=== PATIENT | female | born 1925 | race Caucasian/White ===

== ENCOUNTER 2017-04-27 08:30 | Inpatient (IN) | payer BC, OTHER ==
[~2017-04-27] VITALS: Ht 152.4 cm; Wt 60.9 kg
[~2017-04-27 08:30] MED LIST: BROM0.07 OPL; CALC500C70 PO; CHOL100040 PO; CRS/10 PO; CYAN10004 PO; DOXY1TAB6 PO; GATI0.5S OPR; LISI20TA3 PO; METO25TA56 PO; MULT-506 PO; PRED1SUS3 OPL; XRL15 PO
[2017-04-27] MEDS ORDERED: SODIUM CHLORIDE 0.9% 1000ML 250 ML IV STA (08:49)
[2017-04-27] MEDS ORDERED: SENN-65 PO (08:54)
[2017-04-27] MEDS ORDERED: IPRASOL4 INH (08:54)
[2017-04-27] MEDS ORDERED: AMLO-110 PO (08:54)
[2017-04-27] MEDS ORDERED: BENZ200C59 PO (08:54)
[2017-04-27] MEDS ORDERED: DOCU100C31 PO (08:54)
[2017-04-27] MEDS ORDERED: MOML PO (08:54)
[2017-04-27] MEDS ORDERED: LEVO50TA PO (08:54)
[2017-04-27] MEDS ORDERED: ONDA8TAB6 PO (08:54)
[2017-04-27] MEDS ORDERED: TRAM-10 PO (08:54)
[2017-04-27] MEDS ORDERED: SODIENE PR (08:54)
[2017-04-27] MEDS ORDERED: ACET-1256 PO (08:54)
[2017-04-27] MEDS ORDERED: LEVO1TAB35 PO (08:54)
[2017-04-27] MEDS ORDERED: NYST80OI TOP (08:54)
[2017-04-27] MEDS ORDERED: GUAI1TAB75 PO (08:54)
[2017-04-27] MEDS ORDERED: BISA1TAB15 PO (08:54)
[2017-04-27] MEDS ORDERED: POLY1POW2 PO (08:54)
[2017-04-27] MEDS ORDERED: POLY1DRO19 OP (08:54)
[2017-04-27] MEDS ORDERED: ALBINS/ INH (08:55)
--- NOTE | 2017-04-27 08:55 | EMERGENCY ROOM VISIT NOTE ---
History Report prepared by Mickey: Dominique Tran Under the Supervision of: Dr. Miguel Stark M.D. First contact with patient: 08:37 Stated Complaint: RESPIRATORY History of Present Illness The patient is an 89 year old female who presents to the Emergency Room with complaints of persistent respiratory problems that began this past weekend. Per nursing staff, the patient has been at [facility] for rehabilitation after having a stroke that occurred in January that affected her left side. Per nursing staff, the patient had developed a dry cough, that turned into a wet cough. The patient reports shortness of breath today. Nursing staff notes that the patient has been on Levaquin since this past weekend. The patient denies any difficulty eating or pain or swelling in her lower extremities. She denies any vomiting or chest pain. Per nursing staff the patient had a fever recently. Nursing staff reports a history of atrial fibrillation, hypertension , and a GI bleed. Source of History: patient, transfer records, nursing staff Onset: this past weekend Position: other (global) Quality: other (respiratory problems) Timing: other (persistent) Associated Symptoms: + fevers, + cough, + chest pain, No SOB, No vomiting Review of Systems See HPI for pertinent positives & negatives. A total of 10 systems reviewed and were otherwise negative. Past Medical & Surgical Medical Problems: (1) Chronic atrial fibrillation (2) Elbow fracture, left (3) Femoral fracture (4) GI bleed (5) GI bleed (6) History of right MCA stroke (7) HLD (hyperlipidemia) (8) HTN (hypertension) (9) Osteoporosis (10) Stroke Surgical Problems: (1) History of bowel resection (2) History of total hip replacement Old medical records were reviewed. Nurse's notes were reviewed and I agree with. Family History Noncontributory secondary to the patient's age. Social History Smoking Status: Never Smoker Marital Status: single Occupation Status: retired Current/Historical Medications Scheduled Amlodipine (Norvasc), 5 MG PO QAM Calcium/Vitamin D (Os-Octaviano 500 Plus D), 1 TAB PO DAILY Cholecalciferol (Vitamin D-1000), 1 TAB PO DAILY Docusate Sodium (Docusate Sodium), 1 CAP PO BID Guaifenesin La (Guaifenesin Er), 600 MG PO TIDM Ipratropium-Albuterol (Duoneb), 3 ML INH Q4H Levofloxacin (Levaquin), 750 MG PO DAILY Levothyroxine Sodium (Synthroid), 50 MCG PO DAILY Metoprolol Tartrate (Lopressor) (Lopressor), 25 MG PO BID Nystatin (Topical) (Nystatin), 1 APPLN TOP BID Rosuvastatin Calcium (Crestor), 10 MG PO QPM Scheduled PRN Acetaminophen (Tylenol), 500 MG PO Q4 PRN for Pain Albuterol Sulf (Proventil 0.083% 2.5MG/3ML), 2.5 MG INH Q4 PRN for Shortness of Breath Benzonatate (Tessalon Perles), 200 MG PO TID PRN for Cough Bisacodyl (Bisacodyl), 10 SUPP PO UD PRN for Constipation Magnesium Hydroxide (Milk Of Magnesia), 30 ML PO DAILY PRN for Constipation Ondansetron Hcl (Zofran), 8 MG PO Q8 PRN for Nausea or Vomiting Polyethylene Glycol 3350 (Bulk (Polyethylene Glycol 3350), 17 GM PO DAILY PRN for Constipation Polyethylene Glycol-Propylene (Lubricant Eye Drops), 1 DROP OP BID PRN for DRYNESS Senna/Docusate Sod (Senokot S), 1 TAB PO DAILY PRN for Constipation Sodium Phosphate/Biphosphate (Fleet Enema), 1 EA VT DAILY PRN for Constipation Tramadol (Ultram), 50 MG PO Q4H PRN for Pain Allergies Coded Allergies: Statins (Verified Adverse Reaction, Unknown, MUSCLE ACHES, 04/27/17) Physical Exam Vital Signs Date Time Temp Pulse Resp B/P (MAP) Pulse Ox O2 Delivery O2 Flow Rate FiO2 04/27/17 11:05 125 26 95 04/27/17 11:01 89/60 04/27/17 10:35 129 28 96 04/27/17 10:30 140 28 116/70 94 04/27/17 10:00 132 27 95 04/27/17 09:30 135 25 95 04/27/17 09:00 133 27 96 04/27/17 08:55 95 Room Air 2.0 04/27/17 08:53 95 Room Air 2.0 04/27/17 08:46 36.8 132 32 103/76 94 Room Air 04/27/17 08:39 135 04/27/17 08:35 103/76 Physical Exam General: Chronically ill-appearing older female in no acute distress, who has a frequent cough. HEENT: Normal cephalic atraumatic. Pupils are equal round and reactive to light. Extraocular movements are intact. Oropharynx is pink with moist mucous membranes. No swelling of the mouth lips or tongue. Neck: Supple with a midline trachea. No meningeal signs or stiffness, no JVD or bruits. No Stridor. Chest: Rhonchus breath sounds. No increased work of breathing. Heart: Irregularly irregular, moderately tachycardic Abdomen: Soft nontender, nondistended without rebound guarding or rigidity. Extremities: No cyanosis clubbing or edema. No calf tenderness or assymetry Spine/Back. Non tender to palpation. No CVA tenderness Skin: Good turgor without rashes. Neurologic exam: Cranial nerves two through 12 are intact. Baseline weakness on the left side compared to the right, more so than in the arm than leg. Medical Decision & Procedures ER Provider Diagnostic Interpretation: Radiology results as stated below per my review and radiologist interpretation: CHEST ONE VIEW PORTABLE CLINICAL HISTORY: CHEST PAIN dyspnea COMPARISON STUDY: No previous studies for comparison. FINDINGS: Moderate cardiomegaly. Infiltrate left base combined with a small left effusion. Minimal atelectasis right base. Moderate prominence pulmonary vasculature. Severe degenerative change left shoulder. IMPRESSION: Pulmonary vascular congestion with a probable superimposed infiltrate/effusion left base. The above report was generated using voice recognition software. It may contain grammatical, syntax or spelling errors. Electronically signed by: Augustus Logan M.D. 04/27/2017 9:25 AM Dictated Date/Time: 04/27/2017 9:24 AM Laboratory Results 04/27/17 08:52 Red Blood Count 3.73, Mean Corpuscular Volume 82.6, Mean Corpuscular Hemoglobin 26.3, Mean Corpuscular Hemoglobin Concent 31.8, Mean Platelet Volume 9.5, Neutrophils (%) (Auto) 82.8, Lymphocytes (%) (Auto) 7.1, Monocytes (%) (Auto) 8.6, Eosinophils (%) (Auto) 0.9, Basophils (%) (Auto) 0.1, Neutrophils # (Auto) 10.54, Lymphocytes # (Auto) 0.90, Monocytes # (Auto) 1.10, Eosinophils # (Auto) 0.12, Basophils # (Auto) 0.01 04/27/17 08:49 Test 04/27/17 08:49 04/27/17 08:50 04/27/17 08:52 04/27/17 09:05 Anion Gap 7.0 mmol/L (3-11) Est Creatinine Clear Calc Drug Dose 41.3 ml/min Estimated GFR () 80.6 Estimated GFR (Non- 69.5 BUN/Creatinine Ratio 27.1 (10-20) Calcium Level 9.2 mg/dl (8.5-10.1) Total Bilirubin 0.3 mg/dl (0.2-1) Direct Bilirubin 0.1 mg/dl (0-0.2) Aspartate Amino Transf (AST/SGOT) 14 U/L (15-37) Alanine Aminotransferase (ALT/SGPT) 16 U/L (12-78) Alkaline Phosphatase 102 U/L (45-117) Total Creatine Kinase 32 U/L (26-192) Total Protein 6.7 gm/dl (6.4-8.2) Albumin 2.5 gm/dl (3.4-5.0) Lipase 117 U/L (73-393) Prothrombin Time 13.6 SECONDS (9.0-12.0) Prothromb Time International Ratio 1.3 (0.9-1.1) Procalcitonin 0.15 ng/ml (0-0.5) White Blood Count 12.74 K/uL (4.8-10.8) Red Blood Count 3.73 M/uL (4.2-5.4) Hemoglobin 9.8 g/dL (12.0-16.0) Hematocrit 30.8 % (37-47) Mean Corpuscular Volume 82.6 fL (80-100) Mean Corpuscular Hemoglobin 26.3 pg (25-34) Mean Corpuscular Hemoglobin Concent 31.8 g/dl (32-36) Platelet Count 305 K/uL (130-400) Mean Platelet Volume 9.5 fL (7.4-10.4) Neutrophils (%) (Auto) 82.8 % Lymphocytes (%) (Auto) 7.1 % Monocytes (%) (Auto) 8.6 % Eosinophils (%) (Auto) 0.9 % Basophils (%) (Auto) 0.1 % Neutrophils # (Auto) 10.54 K/uL (1.4-6.5) Lymphocytes # (Auto) 0.90 K/uL (1.2-3.4) Monocytes # (Auto) 1.10 K/uL (0.11-0.59) Eosinophils # (Auto) 0.12 K/uL (0-0.5) Basophils # (Auto) 0.01 K/uL (0-0.2) RDW Standard Deviation 50.7 fL (36.4-46.3) RDW Coefficient of Variation 16.8 % (11.5-14.5) Immature Granulocyte % (Auto) 0.5 % Immature Granulocyte # (Auto) 0.07 K/uL (0.00-0.02) Bedside Lactic Acid Venous 1.09 mmol/L (0.90-1.70) Test 04/27/17 10:30 Influenza Type A Antigen Neg for Influ A (NEG) Influenza Type B Antigen Neg for Influ B (NEG) Laboratory studies as stated above per my review. Medications Administered Medications (Trade) Dose Ordered Sig/Marielos Route Start Time Stop Time Status Last Admin Dose Admin Sodium Chloride 250 ml @ 999 mls/hr Q16M STAT IV 04/27/17 08:49 04/27/17 09:04 DC 04/27/17 08:49 999 MLS/HR Piperacillin Sod/ Tazobactam Sod (Zosyn Iv) 4.5 gm NOW STAT IV 04/27/17 10:10 04/27/17 10:11 DC 04/27/17 10:32 4.5 GM ECG Indication: SOB/dyspnea Rate (beats per minute): 134 Rhythm: atrial fibrillation (with RVR) Findings: nonspecific-ST abn, other (with RVR) ED Course 0840: Past medical records reviewed. The patient was evaluated in room B6, and a complete history and physical examination were performed. 0849: Ordered Sodium Chloride 250 ml @ 999 mls/hr IV. 1010: Ordered Zosyn IV 4.5 gm IV. 1011: I reevaluated the patient and she is resting comfortably. I discussed the exam findings with her and I discussed the treatment plan. She verbalized complete understanding and agreement. She will be evaluated for further treatment. 1015: I discussed the patients case with Leigh Abreu. He is going to evaluate the patient for further treatment. Medical Decision Differentials include, but are not limited to; pneumonia, aspiration, CHF, cardiac disease, electrolyte or metabolic abnormality. This patient comes in sent in from [facility]. She's had had a stroke and there is concern for aspiration. She's had rhonchorous breath sounds had a deep hacking cough. She was also noted to be rapid A. fib. I think this is more compensatory. She was given IV fluids gently, given the concern for possible CHF as well. EKG shows moderately rapid A. fib without ischemic changes. White count is elevated. Lactic acid is not elevated. She's had no significant electrode or metabolic abnormalities. Chest x-ray shows infiltrate in the base. I think she most likely did aspirate. She was given Zosyn 4.5 g IV hydration think she needs to be admitted for further treatment and evaluation blood cultures of obtained. I did consult the [facility] hospitalist. Medication Reconcilliation Current Medication List: was personally reviewed by me Blood Pressure Screening Patient's blood pressure: Normal blood pressure Blood pressure disposition: Did not require urgent referral Consults Time Called: 1011 Consulting Physician: Leigh Abreu Returned Call: 1015 I discussed the patients case with Leigh Abreu. He is going to evaluate the patient for further treatment. Impression Primary Impression: Aspiration pneumonia Additional Impressions: Rapid atrial fibrillation Congestive heart failure Scribe Attestation The scribe's documentation has been prepared under my direction and personally reviewed by me in its entirety. I confirm that the note above accurately reflects all work, treatment, procedures, and medical decision making performed by me. Departure Information Dispostion Being Evaluated By Hospitalist Referrals Irene Graf PA-C (PCP) Problem Qualifiers
--- NOTE | 2017-04-27 09:27 | DIAGNOSTIC IMAGING REPORT ---
CHEST ONE VIEW PORTABLE CLINICAL HISTORY: CHEST PAIN dyspnea COMPARISON STUDY: No previous studies for comparison. FINDINGS: Moderate cardiomegaly. Infiltrate left base combined with a small left effusion. Minimal atelectasis right base. Moderate prominence pulmonary vasculature. Severe degenerative change left shoulder. IMPRESSION: Pulmonary vascular congestion with a probable superimposed infiltrate/effusion left base. The above report was generated using voice recognition software. It may contain grammatical, syntax or spelling errors. Electronically signed by: Augustus Logan M.D. 04/27/2017 9:25 AM Dictated Date/Time: 04/27/2017 9:24 AM
[2017-04-27 09:45] LABS: BUN/CREATININE RATIO 27.1 (10-20); CALCIUM 9.2 mg/dl (8.5-10.1); CREATININE 0.76 mg/dl (0.60-1.20); POTASSIUM 4.2 mmol/L (3.5-5.1)
[2017-04-27 09:47] LABS: BASO % 0.1 %; BASO ABS # 0.01 K/uL (0-0.2); COMPLETE YES; EOS % 0.9 %; HEMATOCRIT 30.8 % (37-47); IG% 0.5 %; LYMPH % 7.1 %; MEAN CELL VOLUME 82.6 fL (80-100); MEAN CORPUSCULAR HEMOGLOBIN 26.3 pg (25-34); MEAN CORPUSCULAR HGB CONC 31.8 g/dl (32-36); MEAN PLATELET VOLUME 9.5 fL (7.4-10.4); MONO % 8.6 %; NEUT % 82.8 %; PLATELET COUNT 305 K/uL (130-400); RED BLOOD COUNT 3.73 M/uL (4.2-5.4); WHITE BLOOD COUNT 12.74 K/uL (4.8-10.8)
[2017-04-27 09:51] LABS: CKMB/CK RATIO 2.2 (0-3.0)
[2017-04-27] MEDS ORDERED: PIPERACILLIN/TAZOBACTAM 4.5 GM/100ML D5W IV STA (10:10)
[2017-04-27] MEDS ORDERED: ONDANSETRON INJ 2 MG/ML 2 ML VIAL IV PRN (11:45)
[2017-04-27] MEDS ORDERED: CONSULT PHARMACY STA (11:51)
[2017-04-27 11:57] LABS: INR 1.3 (0.9-1.1); PROTHROMBIN TIME (PATIENT) 13.6 SECONDS (9.0-12.0)
[2017-04-27] MEDS ORDERED: FUROSEMIDE INJ 40 MG in SYRINGE 0 ML IV ONE (12:15)
[2017-04-27] MEDS ORDERED: DIGOXIN IV 125 MCG in SYRINGE 9.5 ML IV STA (12:28)
[2017-04-27] MEDS ORDERED: PIPERACILL/TAZOBAC CONSULT ACTIVE PRN (12:30)
[2017-04-27] MEDS ORDERED: VANCOMYCIN CONSULT ACTIVE PRN (12:30)
[2017-04-27] MEDS ORDERED: POLYETHYLENE (MIRALAX) 17 GM PACK PO PRN (12:45)
[2017-04-27] MEDS ORDERED: DOCUSATE SODIUM/SENNA 50/8.6MG TAB PO PRN (12:45)
[2017-04-27] MEDS ORDERED: DIGOXIN IV 125 MCG in SYRINGE 9.5 ML IV ONE (13:15)
[2017-04-27 14:07] VITALS: BP 106/67; TEMP 36.8; Ht 152.4 cm; Wt 60.9 kg
[2017-04-27] MEDS ORDERED: PANTOprazole SOD 40 MG TAB PO ONE (14:15)
[2017-04-27] MEDS ORDERED: INFLUENZA ADMINISTRATION CHARGE ONE (14:45)
[2017-04-27] MEDS ORDERED: INFLUENZA VACCINE HIGH DOSE 65+ 0.5 ML SYR IM. ONE (14:45)
[2017-04-27 14:47] LABS: URINE APPEARANCE TURBID (CLEAR); URINE BILIRUBIN NEG (NEG); URINE COLOR YELLOW; URINE EPITHELIAL CELL AUTO >30 /lpf (0-5); URINE NITRITE NEG (NEG); URINE SPECIFIC GRAVITY 1.031 (1.000-1.030); UROBILINOGEN NEG (NEG)
[2017-04-27 14:53] LABS: MANUAL MICROSCOPIC REQUIRED? NO; REVIEW REQ? YES
[2017-04-27] MEDS: IPRATROPIUM BROMIDE NEB SOLN 0.02% 2.5 ML VIAL INH SCH ×2 (15:16→20:47)
[2017-04-27] MEDS: LEVALBUTEROL 1.25MG/3ML NEB INH SCH ×2 (15:17→20:47)
[2017-04-27 15:21] VITALS: PULSE 114; O2SAT 96
[2017-04-27] MEDS: SODIUM CHLORIDE 0.9% 1000ML 1,000 ML IV SCH (15:24)
[2017-04-27] MEDS: PIPERACILL/TAZOBAC IV 3.375 GM in DEXTROSE 5% 100ML IV SCH (15:28)
[2017-04-27] MEDS ORDERED: METOPROLOL TARTRATE 25 MG TAB PO ONE (15:30)
--- NOTE | 2017-04-27 16:15 | History and Physical ---
History & Physical Date & Time of Service: Apr 27, 2017 ~ 11:15 Chief Complaint: Elevated Heart Rate, Worsening Respiratory Status Primary Care Physician: Currently at [facility] Has followed with Leigh Le in the Past History of Present Illness 89 year old female who is sent from [facility] for tachycardia and worsening respiratory status. Some history is obtained from outpatient records. Patient has history of atrial fibrillation and had been anticoagulated on Xarelto however developed a gastric ulcer with bleeding while taking Doxycycline. Xarelto was held and patient unfortunately suffered a right MCA stroke. She was treated at [facility]. Patient was evaluated by GI, cardiology, and neurology who decided to resume anticoagulation with Eliquis. Patient was then transferred to a SNF. She continued to improve and was then transferred to [facility]. I discussed the case with SILVERIO Cervantes at [facility]. She reports that since the patient has arrived there she has had a moist cough that has been progressively getting worse. She also is now requiring 2L of oxygen. Patient was treated for a UTI with Bactrim a couple of weeks ago. Due to her worsening cough, she was started on Levaquin on 04/24 for a suspected pneumonia. Blood pressures were also running low so her Lisinopril was discontinued recently. Since yesterday, patient's heart rate has been persistently in the 130s so she was sent to the ED for further evaluation. Patient reports a persistent cough. She reports it is moist but non productive. She has some mild exertional shortness of breath. Staff at [facility] report that they have noticed her to be coughing with her pills and meals at times. Patient denies chest pain and palpitations. No lightheadedness, dizziness, diaphoresis, or syncopal events. She reports some nausea a couple of days ago with one episode of vomiting. She attributes this to the Levaquin. Her appetite has been poor. No abdominal pain or diarrhea. She denies urinary symptoms. In the ED, patient' s HR continues to be in the 130s and with borderline BPs with systolic in the 90s-low 100s. WBC 12K, POC lactate is normal. CXR shows a left base infiltrate/ effusion. She was given 250ml IVF and Zosyn. Past Medical/Surgical History Medical Problems: (1) Chronic atrial fibrillation Status: Chronic (2) Elbow fracture, left Permanent Comment: s/p repair Status: Chronic (3) Femoral fracture Permanent Comment: s/p rodding Status: Chronic (4) GI bleed Status: Resolved (5) GI bleed Status: Chronic (6) History of right MCA stroke Status: Chronic (7) HLD (hyperlipidemia) Status: Chronic (8) HTN (hypertension) Status: Chronic (9) Osteoporosis Status: Chronic (10) Stroke Status: Resolved Surgical Problems: (1) History of bowel resection Status: Chronic (2) History of total hip replacement Status: Chronic Family History non contributory due to patient's age Social History Smoking Status: Never Smoker Alcohol Use: none Immunizations History of Influenza Vaccine: Yes Influenza Vaccine Date: Apr 28, 2016 History of Tetanus Vaccine?: Yes Tetanus Immunization Date: Dec 06, 2005 History of Pneumococcal: Yes Pneumococcal Date: October 23, 2014 Allergies Coded Allergies: Statins (Verified Adverse Reaction, Unknown, MUSCLE ACHES, 04/27/17) Home Medications Scheduled Amlodipine (Norvasc), 5 MG PO QAM Calcium/Vitamin D (Os-Octaviano 500 Plus D), 1 TAB PO DAILY Cholecalciferol (Vitamin D-1000), 1 TAB PO DAILY Docusate Sodium (Docusate Sodium), 1 CAP PO BID Guaifenesin La (Guaifenesin Er), 600 MG PO TIDM Ipratropium-Albuterol (Duoneb), 3 ML INH Q4H Levofloxacin (Levaquin), 750 MG PO DAILY Levothyroxine Sodium (Synthroid), 50 MCG PO DAILY Metoprolol Tartrate (Lopressor) (Lopressor), 25 MG PO BID Nystatin (Topical) (Nystatin), 1 APPLN TOP BID Rosuvastatin Calcium (Crestor), 10 MG PO QPM Scheduled PRN Acetaminophen (Tylenol), 500 MG PO Q4 PRN for Pain Albuterol Sulf (Proventil 0.083% 2.5MG/3ML), 2.5 MG INH Q4 PRN for Shortness of Breath Benzonatate (Tessalon Perles), 200 MG PO TID PRN for Cough Bisacodyl (Bisacodyl), 10 SUPP PO UD PRN for Constipation Magnesium Hydroxide (Milk Of Magnesia), 30 ML PO DAILY PRN for Constipation Ondansetron Hcl (Zofran), 8 MG PO Q8 PRN for Nausea or Vomiting Polyethylene Glycol 3350 (Bulk (Polyethylene Glycol 3350), 17 GM PO DAILY PRN for Constipation Polyethylene Glycol-Propylene (Lubricant Eye Drops), 1 DROP OP BID PRN for DRYNESS Senna/Docusate Sod (Senokot S), 1 TAB PO DAILY PRN for Constipation Sodium Phosphate/Biphosphate (Fleet Enema), 1 EA AL DAILY PRN for Constipation Tramadol (Ultram), 50 MG PO Q4H PRN for Pain Review of Systems ROS per HPI, all other systems reviewed and negative Physical Exam Vital Signs Date Time Temp Pulse Resp B/P (MAP) Pulse Ox O2 Delivery O2 Flow Rate FiO2 04/27/17 13:15 128 04/27/17 13:04 121 30 117/67 97 Nasal Cannula 3.0 04/27/17 12:59 127 04/27/17 12:05 128 25 89/55 92 04/27/17 12:04 88/49 04/27/17 12:01 88/54 04/27/17 11:35 135 24 109/57 90 04/27/17 11:30 95/57 04/27/17 11:30 129 04/27/17 11:05 125 26 95 04/27/17 11:01 89/60 04/27/17 10:35 129 28 96 04/27/17 10:30 140 28 116/70 94 04/27/17 10:00 132 27 95 04/27/17 09:30 135 25 95 04/27/17 09:00 133 27 96 04/27/17 08:55 95 Room Air 2.0 04/27/17 08:53 95 Room Air 2.0 04/27/17 08:46 36.8 132 32 103/76 94 Room Air 04/27/17 08:39 135 04/27/17 08:35 103/76 General Appearance: WD/WN, no apparent distress, + pertinent finding (ill appearing) Head: normocephalic, atraumatic Eyes: normal inspection, EOMI, sclerae normal ENT: hearing grossly normal, + pertinent finding (mucous membranes moist) Neck: supple, no JVD, trachea midline Respiratory/Chest: no respiratory distress, + rhonchi (coarse, throughout all lung vaz) Cardiovascular: no edema, normal peripheral pulses, + tachycardia, + irregularly irregular Abdomen/GI: normal bowel sounds, non tender, soft, no organomegaly Extremities/Musculoskelatal: normal inspection, no calf tenderness Neurologic/Psych: alert, normal mood/affect, oriented x 3, + pertinent finding (chronic left sided weakness, unchanged; no acute gross focal deficits noted) Skin: normal color, warm/dry Diagnostics Laboratory Results Results Past 24 Hours Test 04/27/17 08:49 04/27/17 08:50 04/27/17 08:52 04/27/17 09:05 Range/Units Sodium Level 136 136-145 mmol/L Potassium Level 4.2 3.5-5.1 mmol/L Chloride Level 102 98-107 mmol/L Carbon Dioxide Level 27 21-32 mmol/L Anion Gap 7.0 3-11 mmol/L Blood Urea Nitrogen 21 7-18 mg/dl Creatinine 0.76 0.60-1.20 mg/dl Est Creatinine Clear Calc Drug Dose 41.3 ml/min Estimated GFR () 80.6 Estimated GFR (Non- 69.5 BUN/Creatinine Ratio 27.1 10-20 Random Glucose 101 70-99 mg/dl Calcium Level 9.2 8.5-10.1 mg/dl Total Bilirubin 0.3 0.2-1 mg/dl Direct Bilirubin 0.1 0-0.2 mg/dl Aspartate Amino Transf (AST/SGOT) 14 15-37 U/L Alanine Aminotransferase (ALT/SGPT) 16 12-78 U/L Alkaline Phosphatase 102 45-117 U/L Total Creatine Kinase 32 26-192 U/L Creatine Kinase MB 0.7 0.5-3.6 ng/ml Creatine Kinase MB Ratio 0-3.0 Total Protein 6.7 6.4-8.2 gm/dl Albumin 2.5 3.4-5.0 gm/dl Lipase 117 73-393 U/L Prothrombin Time 13.6 9.0-12.0 SECONDS Prothromb Time International Ratio 1.3 0.9-1.1 White Blood Count 12.74 4.8-10.8 K/uL Red Blood Count 3.73 4.2-5.4 M/uL Hemoglobin 9.8 12.0-16.0 g/dL Hematocrit 30.8 37-47 % Mean Corpuscular Volume 82.6 80-100 fL Mean Corpuscular Hemoglobin 26.3 25-34 pg Mean Corpuscular Hemoglobin Concent 31.8 32-36 g/dl Platelet Count 305 130-400 K/uL Mean Platelet Volume 9.5 7.4-10.4 fL Neutrophils (%) (Auto) 82.8 % Lymphocytes (%) (Auto) 7.1 % Monocytes (%) (Auto) 8.6 % Eosinophils (%) (Auto) 0.9 % Basophils (%) (Auto) 0.1 % Neutrophils # (Auto) 10.54 1.4-6.5 K/uL Lymphocytes # (Auto) 0.90 1.2-3.4 K/uL Monocytes # (Auto) 1.10 0.11-0.59 K/uL Eosinophils # (Auto) 0.12 0-0.5 K/uL Basophils # (Auto) 0.01 0-0.2 K/uL RDW Standard Deviation 50.7 36.4-46.3 fL RDW Coefficient of Variation 16.8 11.5-14.5 % Immature Granulocyte % (Auto) 0.5 % Immature Granulocyte # (Auto) 0.07 0.00-0.02 K/uL Bedside Lactic Acid Venous 1.09 0.90-1.70 mmol/L Test 04/27/17 10:30 04/27/17 12:03 04/27/17 12:10 04/27/17 12:23 Range/Units Influenza Type A Antigen Neg for Influ A NEG Influenza Type B Antigen Neg for Influ B NEG Lactic Acid Level 1.8 0.4-2.0 mmol/L Creatine Kinase MB Ratio 0-3.0 Microbiology Results 04/27/17 Blood Culture, Received Pending 04/27/17 Blood Culture, Received Pending Diagnostic Radiology CXR IMPRESSION: Pulmonary vascular congestion with a probable superimposed infiltrate/effusion left base. Impression Assessment and Plan ACUTE HYPOXIC RESPIRATORY FAILURE PNEUMONIA, POSSIBLE ASPIRATION SEPSIS - admit to tele - patient presenting from [facility] for worsening respiratory status and persistent tachycardia; in the ED, patient is in atrial fibrillation with RVR and CXR shows an infiltrate in the left base; currently requiring 2L of oxygen - tachycardic, WBC 12K; lactic acid normal, blood pressures borderline at times but stable - patient does sound rhoncherous on exam however given tachycardia and borderline BPs, will try some gentle IVFs to help with HR and BP - per staff at [facility], patient has been having coughing with pills and meals at times - s/p Zosyn in the ED, will continue with; check MRSA nasal swab and add Vanco if positive - blood and sputum cultures - nebs, flutter valve to help mobilize secretions - speech eval ATRIAL FIBRILLATION WITH RVR - rates uncontrolled likely due to sepsis - noted recent decrease of metoprolol at [facility] due to hypotension - case discussed with Dr. Amanda - will try digoxin and IVF - if BP allows, will resume beta chele - patient has history of chronic a. fib; was anticoagulated on Xarelto but developed a bleeding gastric ulcer in the setting of doxycycline use. Xarelto was held and patient suffered a right MCA stroke. While at [facility] , it was decided by cardiology, neurology, and GI that patient would be resumed on Eliquis. It does not appear that patient is receiving this medication at [facility]. I spoke with SILVERIO Lobo at [facility] who reported to me that she is unsure why patient is not receiving it. There have been no reported additional bleeding episodes. - given patient's high risk for CVA; will resume Eliquis at 2.5mg BID ( recommended dose at discharge from [facility]) and monitor hgb and for signs of bleeding closely HTN - BPs currently borderline - holding PO metoprolol and amlodipine for now HX RIGHT MCA CVA - resuming Eliquis as above HX GASTRIC ULCER - as above - noted that patient is due for repeat EGD for follow up of ulcer; likely can be done as an outpatient DVT PROPHYLAXIS - Eliquis as above CODE STATUS - Patient is a DNR as per my discussion with her and her daughter who is at the bedside. DISPO - In my clinical judgment this beneficiary meets acute admission criteria, established by [facility], that includes being hospitalized through two midnights. - PT/OT, case management - expect d/c back to [facility] once medically stable ADDENDUM: Saw/examined the patient in room 286 +sonorous, rhonchi, congestion throughout history tells me she has been having a productive cough [id number] sent from [facility] +hypoxia, +tachycardia, +leukocytosis given IVFs in the ED A. fib with RVR - given Digoxin due to hypotension On Eliquis for anticoagulation - monitor H/H - hx. of gastric ulcer VTE Prophylaxis VTE Risk Assessment Done? Y/N: Yes Risk Level: Moderate
--- NOTE | 2017-04-27 16:17 | ECHOCARDIOGRAM REPORT ---
*NOTICE TO RECEIVING [employer] This information is strictly Confidential and protected under [place] law. [place] law prohibits you from making any further disclosure of this information unless further disclosure is expressly permitted by the written consent of the person to whom it pertains or is authorized by law. A general authorization for the release of medical or other information is not sufficient for this purpose. Hospital accepts no responsibility if the information is made available to any other person, INCLUDING THE PATIENT. Interpretation Summary * Name: CORDELIA MAYS Study Date: 04/27/2017 02:25 PM BP: 106/67 mmHg * Patient Location: [facility]\S\N286\S\1 HR: 107 * : 1925 (M/d/yyyy) Gender: Female Height: 60 in * Age: 89 yrs Ethnicity: MO Weight: 136 lb * Ordering Physician: Maria Isabel Lyle * Referring Physician: UNKNOWN * Performed By: Glen Zimmerman RCS * * Reason For Study: A-FIB * BSA: 1.6 m2 * -- Conclusions -- * Aortic valve sclerosis moderate, without significant aortic valvular stenosis. * The left ventricular cavity is small. * There is moderate concentric left ventricular hypertrophy. * Proximal septal thickening is noted. * No regional wall motion abnormalities noted. * Ejection Fraction = >70 %. * The left atrium is severely dilated. * The right atrium is moderately dilated. * There is trace mitral regurgitation. * There is moderate to severe tricuspid regurgitation. * Right ventricular systolic pressure is elevated at 30-40mmHg. Procedure Details * A complete two-dimensional transthoracic echocardiogram was performed (2D, M-mode, Doppler and color flow Doppler). Left Ventricle * The left ventricular cavity is small. * There is moderate concentric left ventricular hypertrophy. * Proximal septal thickening is noted. * Left ventricular systolic function is normal. * Ejection Fraction = >70 %. * No regional wall motion abnormalities noted. Right Ventricle * The right ventricle is normal in size and function. Atria * The left atrium is severely dilated. * The right atrium is moderately dilated. * No ASD detected; PFO is not assessed. Mitral Valve * The mitral valve leaflets appear thickened, but open well. * There is no mitral valve stenosis. * There is trace mitral regurgitation. Tricuspid Valve * The tricuspid valve anatomy is normal. * There is no tricuspid stenosis. * There is moderate to severe tricuspid regurgitation. * Right ventricular systolic pressure is elevated at 30-40mmHg. Aortic Valve * The aortic valve is trileaflet. * Aortic valve sclerosis moderate, without significant aortic valvular stenosis. * No hemodynamically significant valvular aortic stenosis. * No aortic regurgitation is present. Pulmonic Valve * The pulmonic valve is not well visualized. Great Vessels * The aortic root is normal size. Pericardium/Pleural * There is no pericardial effusion. MMode 2D Measurements and Calculations IVSd 0.99 cm IVSs 1.1 cm LVIDd 3.0 cm LVIDs 1.7 cm LVPWd 0.87 cm LVPWs 1.0 cm IVS/LVPW 1.1 FS 42.3 % EDV(Teich) 34.4 ml ESV(Teich) 8.6 ml EF(Teich) 74.9 % EDV(cubed) 26.4 ml ESV(cubed) 5.1 ml EF(cubed) 80.8 % % IVS thick 7.3 % % LVPW thick 18.7 % LV mass(C)d 72.6 grams LV mass(C)dI 45.8 grams/m\S\2 LV mass(C)s 42.3 grams LV mass(C)sI 26.7 grams/m\S\2 SV(Teich) 25.8 ml SI(Teich) 16.3 ml/m\S\2 SV(cubed) 21.3 ml SI(cubed) 13.5 ml/m\S\2 Ao root diam 3.4 cm Ao root area 9.0 cm\S\2 ACS 1.6 cm LA dimension 5.2 cm asc Aorta Diam 3.1 cm LA/Ao 1.5 Doppler Measurements and Calculations MV E max jhony 138.6 cm/sec MV P1/2t max jhony 148.6 cm/sec MV P1/2t 61.8 msec MVA(P1/2t) 3.6 cm\S\2 MV dec slope 703.7 cm/sec\S\2 MV dec time 0.18 sec Ao V2 max 153.8 cm/sec Ao max PG 9.5 mmHg Ao max PG (full) 3.2 mmHg AI max jhony 259.3 cm/sec AI max PG 26.9 mmHg AI dec slope 425.4 cm/sec\S\2 AI P1/2t 178.5 msec LV V1 max PG 6.3 mmHg LV V1 max 125.1 cm/sec PA V2 max 104.5 cm/sec PA max PG 4.4 mmHg PI max jhony 214.5 cm/sec PI max PG 18.4 mmHg PI dec slope 247.4 cm/sec\S\2 PI P1/2t 253.9 msec TR max jhony 282.3 cm/sec
--- NOTE | 2017-04-27 16:31 | CARDIOLOGY CONSULTATION ---
DATE OF CONSULTATION: 04/27/2017 DATE OF CONSULTATION: 04/27/2017 REFERRING: Maria Isabel yLle. PRIMARY CARE PHYSICIAN: Dr Maciel PRIMARY RAW PRODUCTS DIRECTOR: Dr. Isaac Howard. HISTORY OF PRESENT ILLNESS: The patient is a complex 89-year-old female with information gained by review of records and discussion with the patient and family. Her history is notable for chronic atrial fibrillation of greater than 1 year's duration, hypothyroidism, stage III renal insufficiency, history of upper GI bleed on 01/30/2017 which resulted in interruption of chronic anticoagulation for atrial fibrillation. Per history and review of records, patient was rehospitalized with acute right hemispheric stroke consistent with embolic disease with associated left hemiparesis. The patient was subsequently discharged from [facility] and has been recently cared for at [facility] to expedite rehabilitation per records and report. The patient presents now noting approximately 1 week's worsening cough, feels she has upper respiratory infection exposure, was treated as possible pneumonia at rehab facility with oral Levaquin. Today, however, symptoms became more pronounced with worsening cough, shortness of breath and hypoxia as well as elevated ventricular response rates on chronic atrial fibrillation. She was transferred to the Emergency Room where initial blood pressures were notable for hypotension, systolic blood pressures in the 80s and 90s and heart rates as high as 135. The patient's main complaints were ongoing rhonchorous cough, low-grade fever. She noted no chest pain and noted no syncope, no melena, hematochezia that she is aware of, but described episode of gastric ulcer bleeding in January as previously noted. Appetite has been only fair. She has noted difficulty taking medications recently with trials attempt and taking medications in applesauce unsuccessful. She has been getting "most of her medications well taken with pudding per description". Blood pressure medications were not been notably reduced due to hypotension and outs in the [facility] facility with lisinopril being held and metoprolol dosing reduced. ALLERGIES: LUNESTA AND SIMVASTATIN. MEDICATIONS: Per review of records at time of transfer to [facility] were albuterol nebulizer, amlodipine 5 mg per day, Tessalon Perles, calcium with vitamin D, docusate 100 mg b.i.d., DuoNeb, levofloxacin 750 mg per day, Synthroid 50 mcg per day, metoprolol tartrate 25 mg per day with usual dose 50 mg twice per day, nystatin, Zofran, rosuvastatin 10 mg per day, Senokot, tramadol p.r.n. pain. Medications recently included above. In addition, the patient had been taking lisinopril 20 mg twice per day and as described metoprolol tartrate 50 mg twice per day as well as rivaroxaban 10 mg per day. PAST SURGICAL HISTORY: Notable for femoral fracture status post repair January 2015, total hip replacement in 2007, EGD done on 01/29/2016 with nonbleeding flat gastric ulcer treated with spot clipping. FAMILY HISTORY: Not notable for cardiac disease per patient though records reflect myocardial infarction in father at age 72. SOCIAL HISTORY: The patient is a nonsmoker, nondrinker. PHYSICAL EXAMINATION: GENERAL: The patient is a thin, age appropriate female, currently denying any acute complaints other than cough. Blood pressure is 100/60. Heart rate is 120. HEAD, EYES, EARS, NOSE, AND THROAT: Normocephalic, atraumatic. NECK: Thin. There is no jugular venous distension with patient examined at 20 degrees. Skin turgor is poor. LUNGS: Reveal coarse rhonchorous sounds, left greater than right. CARDIOVASCULAR: Irregular, irregular with a grade 1/6 systolic murmur at the apex. PMI is forceful. ABDOMEN: Soft. There is no hepatojugular reflux. EXTREMITIES: Without cyanosis or clubbing. There is no peripheral edema in the lower extremities. There are intact distal pulses. NEUROLOGIC: The patient has left lower extremity weakness and mild dysarthria. LABORATORY STUDIES: White cell count is 12.7, hemoglobin is 9.8, 82% neutrophils. Sodium is 136, potassium is 4.2, chloride is 102, bicarbonate 27, BUN is 21, creatinine 0.76, glucose is 101. AST is 14, ALT 16. CK-MB fractions and troponin are normal. BNP is normal. Albumin level is 2.5. Chest x-ray reveals increased interstitial markings as well as infiltrate left base. EKG reveals atrial fibrillation with rapid ventricular response, rate 134, nonspecific ST segment changes, no Q-waves. Blood culture and urine cultures are pending. Urine culture done during hospital stay recently demonstrated E. coli as well. IMPRESSION: An 89-year-old female who presents with febrile illness, elevated white cell count, coarse rhonchorous cough. X-ray demonstrated increasing congestion as well as infiltrate. Exam does not suggest congestive heart failure or volume overload with neck veins flat, poor skin turgor. The patient's chronic atrial fibrillation has an elevated ventricular response rate, likely in response to patient's acute illness and recent reduction in beta chele dosing. The patient received 0.25 mg of IV digoxin in the Emergency Room. We will reinstitute beta chele as blood pressure allows. Would continue hydration. We will review echocardiogram preliminary view in the room at bedside reveals normal to hyperdynamic LV function, marked biatrial enlargement. No wall motion abnormalities. MTDD
[2017-04-27] MEDS: GUAIFENESIN 600 MG TABCR PO SCH (17:18)
[2017-04-27] MEDS: METOPROLOL TARTRATE 25 MG TAB PO SCH ×2 (18:00→21:48)
[2017-04-27 19:37] VITALS: BP 99/63; PULSE 83
[2017-04-27] MEDS: NYSTATIN OINT 15 GM TUBE EXT SCH (20:43)
[2017-04-27] MEDS: DOCUSATE SODIUM 100 MG CAP PO SCH (20:43)
[2017-04-27] MEDS: APIXABAN 2.5 MG TAB PO SCH (20:44)
[2017-04-27] MEDS: ROSUVASTATIN CALCIUM 10 MG TAB PO SCH (20:44)
[2017-04-27 20:47] VITALS: PULSE 92; O2SAT 94
[2017-04-27] MEDS ORDERED: NURSING VERBAL MED ORDER ONE (21:15)
[2017-04-27 21:25] VITALS: PULSE 85; TEMP 37.1; O2SAT 95
[2017-04-27] MEDS ORDERED: CALCIUM CARBONATE 500 MG CHEWABLE PO PRN (21:30)
[2017-04-27 21:47] VITALS: BP 117/68; PULSE 73
[2017-04-27] MEDS: ACETAMINOPHEN 325 MG TAB PO PRN (21:51)
[2017-04-28] VITALS (13 sets, daily range): BP systolic 92–141; BP diastolic 60–71; PULSE 82–118; TEMP 36.5–37.1; O2SAT 94–98
[2017-04-28] MEDS: SODIUM CHLORIDE 0.9% 1000ML 1,000 ML IV SCH ×3 (00:14→20:11)
[2017-04-28] MEDS: PIPERACILL/TAZOBAC IV 3.375 GM in DEXTROSE 5% 100ML IV SCH ×3 (00:14→15:42)
[2017-04-28] MEDS: LEVALBUTEROL 1.25MG/3ML NEB INH SCH ×4 (01:57→20:24)
[2017-04-28] MEDS: IPRATROPIUM BROMIDE NEB SOLN 0.02% 2.5 ML VIAL INH SCH ×4 (01:57→20:24)
[2017-04-28] MEDS: LEVOTHYROXINE 50 MCG TAB PO SCH (06:20)
[2017-04-28] MEDS: METOPROLOL TARTRATE 25 MG TAB PO SCH ×4 (07:44→21:03)
[2017-04-28] MEDS: DOCUSATE SODIUM 100 MG CAP PO SCH ×2 (07:44→21:01)
[2017-04-28] MEDS: NYSTATIN OINT 15 GM TUBE EXT SCH ×2 (07:44→21:01)
[2017-04-28] MEDS: GUAIFENESIN 600 MG TABCR PO SCH ×3 (07:44→17:03)
[2017-04-28] MEDS: PANTOprazole SOD 40 MG TAB PO SCH (07:45)
[2017-04-28] MEDS: APIXABAN 2.5 MG TAB PO SCH ×2 (07:45→21:02)
[2017-04-28] MEDS: CHOLECALCIFEROL 1000 INTER.UNIT TAB PO SCH (07:45)
[2017-04-28] MEDS: CALCIUM 600MG + VIT D 400 IU TAB PO SCH (07:45)
--- NOTE | 2017-04-28 10:25 | PROGRESS NOTE ---
DATE: 04/28/2017 The patient was seen and examined. Chart, medications and telemetry were reviewed. SUBJECTIVE: The patient still has severe cough and poor p.o. intake though was able to take medications this morning and last evening. She notes no chest pain or discomfort. She has only mild amount of sputum production. OBJECTIVE: VITAL SIGNS: Heart rate is 112, blood pressure is 111/67 and O2 saturations are 94% on 2 liters nasal cannula. NECK: Thin. There is no distinct jugular venous distention. LUNGS: Reveal coarse rhonchorous sounds throughout lung vaz, left greater than the right, exacerbated by cough. CARDIOVASCULAR: Irregularly irregular. ABDOMEN: Soft and nontender. EXTREMITIES: Without cyanosis or clubbing. There is no peripheral edema. LABORATORY STUDIES: Pending. DATA: EKG this morning reveals atrial fibrillation with elevated ventricular response rate. No acute ST segment changes. IMPRESSION: An 89-year-old female, with complex history as previously outlined, admitted with acute respiratory decline and severe cough. Chest x-ray and exam are consistent with pneumonia, elevated atrial fibrillation response rates. The patient is being hydrated on antibiotic therapies. Anticoagulation has been resumed with Apixaban. PLAN: Continue IV hydration throughout today. She does have by examination on echocardiogram hyperdynamic LV function with brittle diastolic dysfunction by echo. We will need to follow fluid status closely. Current exam does not suggest heart failure. Once again, we will add digoxin to aid in rate control. Continue oral metoprolol with ultimate goals of further titration upward as blood pressure allows.
[2017-04-28] MEDS ORDERED: DIGOXIN 0.25 MG TAB PO ONE (10:30)
[2017-04-28 10:36] LABS: HEMATOCRIT 30.5 % (37-47); MEAN CELL VOLUME 82.9 fL (80-100); MEAN CORPUSCULAR HEMOGLOBIN 25.8 pg (25-34); MEAN CORPUSCULAR HGB CONC 31.1 g/dl (32-36); PLATELET COUNT 283 K/uL (130-400); RED BLOOD COUNT 3.68 M/uL (4.2-5.4); WHITE BLOOD COUNT 9.27 K/uL (4.8-10.8)
[2017-04-28 11:05] LABS: BUN/CREATININE RATIO 25.2 (10-20); CALCIUM 8.1 mg/dl (8.5-10.1); CREATININE 0.52 mg/dl (0.60-1.20); POTASSIUM 3.8 mmol/L (3.5-5.1)
--- NOTE | 2017-04-28 13:08 | DIAGNOSTIC IMAGING REPORT ---
VIDEO SWALLOW HISTORY: Pneumonia. r/o aspiration TECHNIQUE: Video fluoroscopic evaluation of swallowing was performed in the AP and lateral projections by the speech pathology staff. The patient is fed nectar-thick and thin liquid barium, a barium coated wafer, and barium pudding. FLUOROSCOPY TIME: 2.3 minutes. A cine loop submitted. COMPARISON STUDY: None. FINDINGS: There is normal hyoid excursion and epiglottic deflection. There are a few episodes of trace aspiration with the thin liquid barium. No additional episodes of aspiration identified. There is penetration without aspiration with the nectar thick liquid barium. IMPRESSION: 1. A few episodes of trace aspiration with the thin liquid barium. 2. Please see the speech pathologist report for detailed findings and recommendations. Electronically signed by: Zbigniew Valle M.D. 04/28/2017 1:07 PM Dictated Date/Time: 04/28/2017 1:05 PM
--- NOTE | 2017-04-28 14:50 | Progress Note ---
Medicine Progress Note Date & Time of Visit: Apr 28, 2017 at 14:50 . Subjective No fever. Persistent cough. No dyspnea at rest. Tongue sore. No chest pain. No nausea or vomiting. Nursing reports multiple loose stools and some hemorrhoidal bleeding. Has Ramirez cath. Daughter visiting. . Objective Last 8 Hrs Date Time Temp Pulse Resp B/P (MAP) Pulse Ox O2 Delivery O2 Flow Rate FiO2 04/28/17 14:27 36.5 92 18 114/69 (84) 98 2.0 04/28/17 14:24 90 18 95 Nasal Cannula 2.0 04/28/17 13:35 101 120/71 (87) 96 Nasal Cannula 2.0 04/28/17 11:22 36.9 91 18 103/61 (75) 97 Nasal Cannula 2.0 04/28/17 10:25 110 04/28/17 08:00 Nasal Cannula 2.0 04/28/17 07:27 36.6 112 18 111/67 (82) 94 2.0 04/28/17 07:17 88 18 95 Nasal Cannula 2.0 Physical Exam: General- lying in bed, no acute distress Eyes- anicteric ENT- erythema of tongue Neck- no JVD Lungs- bibasilar coarse rales Heart- irregular, no gallop appreciated Abdomen- + BS, soft, nontender Extremities- no pretibial edema or calf tenderness Neuro- alert, mild dysarthria, left facial palsy, LUE 0/5, LLE 3-4/5 . Laboratory Results: Last 24 Hours Test 04/27/17 18:11 04/28/17 00:05 04/28/17 09:58 Creatine Kinase MB 0.6 ng/ml 0.6 ng/ml Creatine Kinase MB Ratio Troponin I < 0.015 ng/ml < 0.015 ng/ml White Blood Count 9.27 K/uL Red Blood Count 3.68 M/uL Hemoglobin 9.5 g/dL Hematocrit 30.5 % Mean Corpuscular Volume 82.9 fL Mean Corpuscular Hemoglobin 25.8 pg Mean Corpuscular Hemoglobin Concent 31.1 g/dl RDW Standard Deviation 51.1 fL RDW Coefficient of Variation 16.7 % Platelet Count 283 K/uL Mean Platelet Volume 9.0 fL Sodium Level 137 mmol/L Potassium Level 3.8 mmol/L Chloride Level 106 mmol/L Carbon Dioxide Level 24 mmol/L Anion Gap 7.0 mmol/L Blood Urea Nitrogen 13 mg/dl Creatinine 0.52 mg/dl Est Creatinine Clear Calc Drug Dose 60.3 ml/min Estimated GFR () 98.2 Estimated GFR (Non- 84.7 BUN/Creatinine Ratio 25.2 Random Glucose 93 mg/dl Calcium Level 8.1 mg/dl Assessment & Plan PNEUMONIA Suspect aspiration pneumonia secondary to recent stroke. Blood cultures obtained. Receiving IV vancomycin and piperacillin / tazobactam. Afebrile. Adequate oxygenation on NC. Blood cultures negative so far. Nasal MRSA screen negative, so MRSA pneumonia unlikely. DC vancomycin. Continue piperacillin / tazobactam. [addendum / correction A[place]IN 04/29/17 @ 01:54- vancomycin ordered, but cancelled and never administered] PULMONARY ASPIRATION Recent stroke. CONFIGURATION MANAGEMENT SPECIALIST consulted. Video fluoroscopy demonstrated trace aspiration of thin barium liquid. Aspiration precautions. 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 Continue anticoagulation with apixaban. Continue PT, OT, CONFIGURATION MANAGEMENT SPECIALIST. ATRIAL FIBRILLATION Rate fast at times. Continue digoxin, metoprolol, apixaban. HYPERTENSION Continue metoprolol. Follow and titrate therapy. GASTRIC ULCER Continue PPI. Needs f/u EGD when medical status allows. CKD III Serum creatinine stable. Follow. ORAL THRUSH Nystatin. DIARRHEA C diff negative. HEMORRHOIDAL BLEEDING Need to continue anticoagulation due to high risk of recurrent cardioembolic events. Anusol HC suppositories. VTE PROPHYLAXIS Continue apixaban. Ambulate as able. DISPOSITION Expected return to [facility] for inpatient rehab. . Current Inpatient Medications: Current Inpatient Medications Medications (Trade) Dose Ordered Sig/Marielos Route Start Time Stop Time Status Last Admin Dose Admin Acetaminophen (Tylenol Tab) 650 mg Q4H PRN PO 04/27/17 11:45 05/27/17 11:44 04/27/17 21:51 650 MG Ondansetron HCl (Zofran Inj) 4 mg Q6H PRN IV 04/27/17 11:45 05/27/17 11:44 Levalbuterol (Xopenex 1.25MG/ 3ML Neb) 1.25 mg Q6R INH 04/27/17 15:00 05/27/17 14:59 04/28/17 14:24 1.25 MG Ipratropium Edmonds (Atrovent 0.02% 0.5MG/2.5ML Neb) 0.5 mg Q6R INH 04/27/17 15:00 05/27/17 14:59 04/28/17 14:24 0.5 MG Piperacillin Sod/ Tazobactam Sod (Consult) 1 ea UD PRN N/A 04/27/17 12:30 05/27/17 12:29 Apixaban (Eliquis Tab) 2.5 mg BID PO 04/27/17 21:00 05/27/17 20:59 04/28/17 07:45 2.5 MG Calcium/Vitamin D (Caltrate Plus Tab) 1 tab DAILY PO 04/28/17 09:00 05/28/17 08:59 04/28/17 07:45 1 TAB Cholecalciferol (Vitamin D Tab) 1,000 inter.unit DAILY PO 04/28/17 09:00 05/28/17 08:59 04/28/17 07:45 1,000 INTER.UNIT Docusate Sodium (coLACE CAP) 100 mg BID PO 04/27/17 21:00 05/27/17 20:59 04/28/17 07:44 100 MG Guaifenesin (Mucinex Contr Rel Tab) 600 mg TIDM PO 04/27/17 17:00 05/27/17 17:59 04/28/17 13:36 600 MG Levothyroxine Sodium (Synthroid Tab) 50 mcg DAILYBB PO 04/28/17 06:30 05/28/17 06:29 04/28/17 06:20 50 MCG Nystatin (Mycostatin Oint) 1 appln BID EXT 04/27/17 21:00 05/27/17 20:59 04/28/17 07:44 1 APPLN Rosuvastatin Calcium (Crestor Tab) 10 mg QPM PO 04/27/17 21:00 05/27/17 20:59 04/27/17 20:44 10 MG Senna/Docusate Sodium (Senokot S Tab) 1 tab DAILY PRN PO 04/27/17 12:45 05/27/17 12:44 Polyethylene (Miralax Powder Packet) 17 gm DAILY PRN PO 04/27/17 12:45 05/27/17 12:44 Sodium Chloride 1,000 ml @ 100 mls/hr Q10H IV 04/27/17 14:00 05/27/17 12:59 04/28/17 07:39 100 MLS/HR Pantoprazole Sodium (Protonix Tab) 40 mg QAM PO 04/28/17 09:00 05/28/17 08:59 04/28/17 07:45 40 MG Piperacillin Sod/ Tazobactam Sod 3.375 gm/Dextrose 115 ml @ 28.75 mls/ hr Q8H IV 04/27/17 16:00 05/04/17 15:59 04/28/17 07:43 28.75 MLS/HR Metoprolol Tartrate (Lopressor Tab) 12.5 mg QID PO 04/27/17 18:00 05/27/17 17:59 04/28/17 13:36 12.5 MG Calcium Carbonate (Tums Chew Tab) 500 mg Q4H PRN PO 04/27/17 21:30 05/27/17 21:29 04/27/17 21:44 500 MG
[2017-04-28] MEDS ORDERED: HYDROCORTISONE ACETATE 25 MG SUPP PR ONE (15:42)
[2017-04-28] MEDS: HYDROCORTISONE ACETATE 25 MG SUPP PR SCH (21:02)
[2017-04-28] MEDS: ROSUVASTATIN CALCIUM 10 MG TAB PO SCH (21:02)
[2017-04-28] MEDS: ACETAMINOPHEN 325 MG TAB PO PRN (23:58)
[2017-04-29] VITALS (10 sets, daily range): BP systolic 112–138; BP diastolic 64–79; PULSE 73–107; TEMP 36.3–36.8; O2SAT 91–98
[2017-04-29] MEDS: PIPERACILL/TAZOBAC IV 3.375 GM in DEXTROSE 5% 100ML IV SCH ×4 (00:03→23:29)
[2017-04-29] MEDS: IPRATROPIUM BROMIDE NEB SOLN 0.02% 2.5 ML VIAL INH SCH ×4 (01:38→20:43)
[2017-04-29] MEDS: LEVALBUTEROL 1.25MG/3ML NEB INH SCH ×4 (01:38→20:43)
[2017-04-29] MEDS: SODIUM CHLORIDE 0.9% 1000ML 1,000 ML IV SCH (05:46)
[2017-04-29] MEDS: LEVOTHYROXINE 50 MCG TAB PO SCH (05:55)
[2017-04-29] MEDS: CHOLECALCIFEROL 1000 INTER.UNIT TAB PO SCH (07:33)
[2017-04-29] MEDS: GUAIFENESIN 600 MG TABCR PO SCH ×3 (07:33→16:42)
[2017-04-29] MEDS: METOPROLOL TARTRATE 25 MG TAB PO SCH ×2 (07:33→13:33)
[2017-04-29] MEDS: DOCUSATE SODIUM 100 MG CAP PO SCH ×2 (07:33→20:31)
[2017-04-29] MEDS: APIXABAN 2.5 MG TAB PO SCH ×2 (07:33→20:32)
[2017-04-29] MEDS: PANTOprazole SOD 40 MG TAB PO SCH (07:33)
[2017-04-29] MEDS: CALCIUM 600MG + VIT D 400 IU TAB PO SCH (07:33)
[2017-04-29] MEDS: HYDROCORTISONE ACETATE 25 MG SUPP PR SCH ×2 (07:34→20:34)
[2017-04-29] MEDS: NYSTATIN OINT 15 GM TUBE EXT SCH ×2 (07:34→20:30)
[2017-04-29 08:10] LABS: HEMATOCRIT 33.3 % (37-47); MEAN CELL VOLUME 82.4 fL (80-100); MEAN CORPUSCULAR HEMOGLOBIN 27.2 pg (25-34); MEAN PLATELET VOLUME 9.2 fL (7.4-10.4); PLATELET COUNT 306 K/uL (130-400); RED BLOOD COUNT 4.04 M/uL (4.2-5.4); WHITE BLOOD COUNT 6.33 K/uL (4.8-10.8)
[2017-04-29] MEDS: NYSTATIN SUSP 500,000 U/5 ML UDC PO SCH ×4 (08:14→20:30)
[2017-04-29 08:42] LABS: BUN/CREATININE RATIO 16.6 (10-20); CALCIUM 8.6 mg/dl (8.5-10.1); CREATININE 0.49 mg/dl (0.60-1.20); POTASSIUM 3.1 mmol/L (3.5-5.1)
[2017-04-29] MEDS ORDERED: POTASSIUM CHLORIDE 20 MEQ TABCR PO ONE (09:30)
--- NOTE | 2017-04-29 10:52 | Clinical Documentation Query ---
CLINICAL DOCUMENTATION QUERY Dr. MORGAN, The diagnosis of sepsis is noted in the H/P and has since been removed from the clinical documentation. In your clinical opinion is this patient being managed for: ( ) Sepsis ( x ) No sepsis Please clarify and document your clinical opinion in the progress notes and discharge summary. Terms such as "probable", "suspected", "likely", "questionable", "possible", or "still to be ruled out" are acceptable. IF IN AGREEMENT, YOU MUST DOCUMENT ABOVE DIAGNOSTIC STATEMENT IN DAILY PROGRESS NOTES AND DISCHARGE SUMMARY. This document is not part of the patient's record. Thank You, Trinity Lam RN [phone]
--- NOTE | 2017-04-29 15:01 | Cardiology Follow-Up ---
Subjective General Date of Service: Apr 29, 2017. Chief Complaint: SOB Pt evaluation today including: physical exam, chart review, lab review, review of studies, review of inpatient medication list History of Present Illness Patient lethargic this AM. Difficult to awaken. Unable to perform ROS. Allergies Coded Allergies: Statins (Verified Adverse Reaction, Unknown, MUSCLE ACHES, 04/27/17) Social History Smoking Status: Never Smoker Hx Tobacco Use In Past Year?: No Hx Alcohol Use - Type And Amou: No Hx Substance Use - Type And Am: No Review of Systems Respiratory: + see HPI Cardiac: + see HPI Physical Exam Vital Signs Last Vital Signs Documentation Date Time Temp Pulse Resp B/P (MAP) Pulse Ox O2 Delivery O2 Flow Rate FiO2 04/29/17 14:25 77 20 98 Nasal Cannula 2.0 04/29/17 13:33 36.6 138/67 (90) Physical Exam Constitutional: Level of Distress: acutely ill, chronically ill Psychiatric: Mental Status: lethargic Lungs: Auscultation: expiratory wheezing, rhonchi Cardiovascular: Heart Auscultation: II/ SAMARIA, irregular rate rhythm Extremities: no edema Assessment and Plan Assessment and Plan 89 year old female 1. Aspiration pneumonia with diffuse rhonchi 2. Recent CVA 3, atrial fibrillation, rates improved after digoxin/beta chele therapy. Chronic anticoagulation therapy PLAN: ? Increased Lethargy today Continue metoprolol. Rates improved. No signs/symptoms of acute CHF. Continue aspiration precautions Continue antibiotics and neb treatments. Supplement potassium. Case discussed with Dr. Amanda Laboratory Results Last 24 Hours Test 04/29/17 07:43 White Blood Count 6.33 K/uL Red Blood Count 4.04 M/uL Hemoglobin 11.0 g/dL Hematocrit 33.3 % Mean Corpuscular Volume 82.4 fL Mean Corpuscular Hemoglobin 27.2 pg Mean Corpuscular Hemoglobin Concent 33.0 g/dl RDW Standard Deviation 50.5 fL RDW Coefficient of Variation 16.5 % Platelet Count 306 K/uL Mean Platelet Volume 9.2 fL Sodium Level 139 mmol/L Potassium Level 3.1 mmol/L Chloride Level 108 mmol/L Carbon Dioxide Level 21 mmol/L Anion Gap 10.0 mmol/L Blood Urea Nitrogen 8 mg/dl Creatinine 0.49 mg/dl Est Creatinine Clear Calc Drug Dose 64.7 ml/min Estimated GFR () 100.1 Estimated GFR (Non- 86.4 BUN/Creatinine Ratio 16.6 Random Glucose 106 mg/dl Calcium Level 8.6 mg/dl Digoxin Level 0.6 ng/ml
--- NOTE | 2017-04-29 15:43 | CARDIOLOGY PROGRESS NOTE ---
DATE: 04/29/2017 DATE: 04/29/2017 The patient seen and examined. Chart, medications, telemetry reviewed. SUBJECTIVE: The patient continues to have a coarse rhonchorous cough but appears less tight. Breathing somewhat easier today. She is taking in thickened liquids. Notes no chest pains. Heart rates have trended towards better rate control with adjustments in medications. OBJECTIVE: VITAL SIGNS: Heart rate is 84, blood pressure is 138/67. HEAD, EYES, EARS, NOSE, AND THROAT: Normocephalic, atraumatic. Nares without discharge. Throat was clear. NECK: Supple. There is no distinct jugular venous distention. LUNGS: Reveal coarse rhonchorous sounds, left greater than right. CARDIOVASCULAR: Irregular, irregular. There is no S3 gallop. ABDOMEN: Soft, nontender. There is no palpable splenomegaly. EXTREMITIES: Without cyanosis or clubbing. There is no peripheral edema. IMPRESSION: 1. Atrial fibrillation with rapid ventricular response, being driven by underlying pulmonary issues. Heart rates have slowed. Plan change metoprolol to 25 mg twice per day with room for titration further. Patient's prior outpatient dosage being 50 mg twice per day. Continue anticoagulant with Apixaban 2.5 mg twice per day. 2. Pneumonia, severe cough slightly improved by exam today. Will discontinue IV fluid resuscitation at this point in time after approximately 3 liter resuscitation. Will watch follow for signs or symptoms of volume overload given brittle diastolic dysfunction. Current exam and past exams are not consistent with congestive failure.
[2017-04-29] MEDS ORDERED: METOPROLOL TARTRATE 25 MG TAB PO SCH (17:00)
[2017-04-29] MEDS: ROSUVASTATIN CALCIUM 10 MG TAB PO SCH (20:32)
--- NOTE | 2017-04-29 20:32 | Progress Note ---
Medicine Progress Note Date & Time of Visit: Apr 29, 2017 at 16:50 . Subjective Persistent cough. Dyspneic when coughing. No chest pain. No fever. No nausea or vomiting. Nursing reports multiple loose stools over last 24 hrs. Had some hemorrhoidal bleeding yesterday, none reported today. Still has Ramirez catheter. . Objective Last 8 Hrs Date Time Temp Pulse Resp B/P (MAP) Pulse Ox O2 Delivery O2 Flow Rate FiO2 04/29/17 20:08 94 Nasal Cannula 2.0 04/29/17 16:00 36.8 104 20 130/73 (92) 94 Nasal Cannula 2.0 04/29/17 16:00 94 Nasal Cannula 2.0 04/29/17 14:25 77 20 98 Nasal Cannula 2.0 04/29/17 13:33 36.6 107 20 138/67 (90) 93 Nasal Cannula 2.0 04/29/17 12:37 36.5 86 18 112/69 (83) 95 Physical Exam: General- lying in bed, no acute distress ENT- Neck- no JVD Lungs- bibasilar coarse rales Heart- irregular, no gallop appreciated Abdomen- + BS, soft, nontender Extremities- no pretibial edema or calf tenderness Neuro- alert, mild dysarthria, left facial palsy, LUE 0/5, LLE 3-4/5 . Laboratory Results: Last 24 Hours Test 04/29/17 07:43 White Blood Count 6.33 K/uL Red Blood Count 4.04 M/uL Hemoglobin 11.0 g/dL Hematocrit 33.3 % Mean Corpuscular Volume 82.4 fL Mean Corpuscular Hemoglobin 27.2 pg Mean Corpuscular Hemoglobin Concent 33.0 g/dl RDW Standard Deviation 50.5 fL RDW Coefficient of Variation 16.5 % Platelet Count 306 K/uL Mean Platelet Volume 9.2 fL Sodium Level 139 mmol/L Potassium Level 3.1 mmol/L Chloride Level 108 mmol/L Carbon Dioxide Level 21 mmol/L Anion Gap 10.0 mmol/L Blood Urea Nitrogen 8 mg/dl Creatinine 0.49 mg/dl Est Creatinine Clear Calc Drug Dose 64.7 ml/min Estimated GFR () 100.1 Estimated GFR (Non- 86.4 BUN/Creatinine Ratio 16.6 Random Glucose 106 mg/dl Calcium Level 8.6 mg/dl Digoxin Level 0.6 ng/ml Assessment & Plan PNEUMONIA Suspect aspiration pneumonia secondary to recent stroke. Blood cultures obtained. Receiving IV vancomycin and piperacillin / tazobactam. Afebrile. Adequate oxygenation on NC. Blood cultures negative so far. Nasal MRSA screen negative, so MRSA pneumonia unlikely. DC vancomycin. Continue piperacillin / tazobactam. PULMONARY ASPIRATION Recent stroke. STUDENT AFFAIRS DEAN consulted. Video fluoroscopy demonstrated trace aspiration of thin barium liquid. Aspiration precautions. 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 Continue anticoagulation with apixaban. Continue PT, OT, STUDENT AFFAIRS DEAN. ATRIAL FIBRILLATION Rate initially fast at times. Received digoxin PRN for rate control. Metoprolol dose adjusted. Continue apixaban. HYPERTENSION Continue metoprolol. Follow and titrate therapy. GASTRIC ULCER Continue PPI. Needs f/u EGD when medical status allows. CKD III Serum creatinine stable. Follow. ORAL THRUSH Nystatin. DIARRHEA C diff negative. HEMORRHOIDAL BLEEDING Need to continue anticoagulation due to high risk of recurrent cardioembolic events. Anusol HC suppositories. VTE PROPHYLAXIS Continue apixaban. Ambulate as able. DISPOSITION Expected return to [facility] for inpatient rehab. . Current Inpatient Medications: Current Inpatient Medications Medications (Trade) Dose Ordered Sig/Marielos Route Start Time Stop Time Status Last Admin Dose Admin Acetaminophen (Tylenol Tab) 650 mg Q4H PRN PO 04/27/17 11:45 05/27/17 11:44 04/28/17 23:58 650 MG Ondansetron HCl (Zofran Inj) 4 mg Q6H PRN IV 04/27/17 11:45 05/27/17 11:44 Levalbuterol (Xopenex 1.25MG/ 3ML Neb) 1.25 mg Q6R INH 04/27/17 15:00 05/27/17 14:59 04/29/17 14:25 1.25 MG Ipratropium [place] (Atrovent 0.02% 0.5MG/2.5ML Neb) 0.5 mg Q6R INH 04/27/17 15:00 05/27/17 14:59 04/29/17 14:25 0.5 MG Piperacillin Sod/ Tazobactam Sod (Consult) 1 ea UD PRN N/A 04/27/17 12:30 05/27/17 12:29 Apixaban (Eliquis Tab) 2.5 mg BID PO 04/27/17 21:00 05/27/17 20:59 04/29/17 07:33 2.5 MG Calcium/Vitamin D (Caltrate Plus Tab) 1 tab DAILY PO 04/28/17 09:00 05/28/17 08:59 04/29/17 07:33 1 TAB Cholecalciferol (Vitamin D Tab) 1,000 inter.unit DAILY PO 04/28/17 09:00 05/28/17 08:59 04/29/17 07:33 1,000 INTER.UNIT Docusate Sodium (coLACE CAP) 100 mg BID PO 04/27/17 21:00 05/27/17 20:59 04/29/17 07:33 100 MG Guaifenesin (Mucinex Contr Rel Tab) 600 mg TIDM PO 04/27/17 17:00 05/27/17 17:59 04/29/17 16:42 600 MG Levothyroxine Sodium (Synthroid Tab) 50 mcg DAILYBB PO 04/28/17 06:30 05/28/17 06:29 04/29/17 05:55 50 MCG Nystatin (Mycostatin Oint) 1 appln BID EXT 04/27/17 21:00 05/27/17 20:59 04/29/17 07:34 1 APPLN Rosuvastatin Calcium (Crestor Tab) 10 mg QPM PO 04/27/17 21:00 05/27/17 20:59 04/28/17 21:02 10 MG Senna/Docusate Sodium (Senokot S Tab) 1 tab DAILY PRN PO 04/27/17 12:45 05/27/17 12:44 Polyethylene (Miralax Powder Packet) 17 gm DAILY PRN PO 04/27/17 12:45 05/27/17 12:44 Pantoprazole Sodium (Protonix Tab) 40 mg QAM PO 04/28/17 09:00 05/28/17 08:59 04/29/17 07:33 40 MG Piperacillin Sod/ Tazobactam Sod 3.375 gm/Dextrose 115 ml @ 28.75 mls/ hr Q8H IV 04/27/17 16:00 05/04/17 15:59 04/29/17 15:38 28.75 MLS/HR Calcium Carbonate (Tums Chew Tab) 500 mg Q4H PRN PO 04/27/17 21:30 05/27/17 21:29 04/27/17 21:44 500 MG Hydrocortisone Acetate (Anusol Hc Supp) 25 mg BID [place] 04/28/17 21:00 04/30/17 09:01 04/29/17 07:34 25 MG Nystatin (Mycostatin Susp) 5 ml QID PO 04/29/17 09:00 05/09/17 08:59 04/29/17 16:42 5 ML Potassium Chloride (Klor-Con Tab) 20 meq BID PO 04/29/17 21:00 05/29/17 20:59 Metoprolol Tartrate (Lopressor Tab) 25 mg BID17 PO 04/30/17 09:00 05/27/17 17:59
[2017-04-29] MEDS: POTASSIUM CHLORIDE 20 MEQ TABCR PO SCH (20:33)
[2017-04-30] VITALS (11 sets, daily range): BP systolic 119–147; BP diastolic 66–90; PULSE 74–116; TEMP 36.4–36.8; O2SAT 94–98
[2017-04-30] MEDS: IPRATROPIUM BROMIDE NEB SOLN 0.02% 2.5 ML VIAL INH SCH ×4 (02:31→19:09)
[2017-04-30] MEDS: LEVALBUTEROL 1.25MG/3ML NEB INH SCH ×4 (02:31→19:10)
[2017-04-30] MEDS: LEVOTHYROXINE 50 MCG TAB PO SCH (05:45)
[2017-04-30 08:20] LABS: BUN/CREATININE RATIO 10.5 (10-20); CALCIUM 8.8 mg/dl (8.5-10.1); CREATININE 0.51 mg/dl (0.60-1.20); POTASSIUM 3.3 mmol/L (3.5-5.1)
[2017-04-30] MEDS: METOPROLOL TARTRATE 25 MG TAB PO SCH ×2 (09:38→17:15)
[2017-04-30] MEDS: GUAIFENESIN 600 MG TABCR PO SCH ×3 (09:39→17:15)
[2017-04-30] MEDS: PANTOprazole SOD 40 MG TAB PO SCH (09:39)
[2017-04-30] MEDS: CHOLECALCIFEROL 1000 INTER.UNIT TAB PO SCH (09:40)
[2017-04-30] MEDS: PIPERACILL/TAZOBAC IV 3.375 GM in DEXTROSE 5% 100ML IV SCH ×3 (09:40→23:52)
[2017-04-30] MEDS: CALCIUM 600MG + VIT D 400 IU TAB PO SCH (09:41)
[2017-04-30] MEDS: APIXABAN 2.5 MG TAB PO SCH ×2 (09:41→20:35)
[2017-04-30] MEDS: POTASSIUM CHLORIDE 20 MEQ TABCR PO SCH ×2 (09:41→20:35)
[2017-04-30] MEDS: DOCUSATE SODIUM 100 MG CAP PO SCH ×3 (09:42→21:00)
[2017-04-30] MEDS: HYDROCORTISONE ACETATE 25 MG SUPP PR SCH (09:42)
[2017-04-30] MEDS: NYSTATIN SUSP 500,000 U/5 ML UDC PO SCH ×4 (09:43→20:33)
[2017-04-30] MEDS: NYSTATIN OINT 15 GM TUBE EXT SCH ×2 (09:44→20:33)
--- NOTE | 2017-04-30 12:25 | Cardiology Follow-Up ---
Subjective Subjective Date of Service: Apr 30, 2017. Pt evaluation today including: conversation w/ patient, physical exam, chart review, lab review, review of studies, review of inpatient medication list Additional Details: Pt seen and examined, oob in chair. States sob has not significantly improved. Denies cp, palpitations, lightheadedness or dizziness. Tele reviewed: atrial fibrillation, rates controlled. Review of Systems Respiratory: + cough, + shortness of breath, No see HPI, No sputum, No wheezing , No dyspnea on exertion, No dyspnea at rest, No hemoptysis, No problem reported Cardiac: No see HPI, No chest pain, No orthopnea, No PND, No edema, No claudication, No palpitations, No problem reported Objective Vital Signs Last Vital Signs Documentation Date Time Temp Pulse Resp B/P (MAP) Pulse Ox O2 Delivery O2 Flow Rate FiO2 04/30/17 08:00 97 Nasal Cannula 2.0 04/30/17 07:51 36.6 77 20 140/68 (92) Physical Exam: General Appearance: WD/WN, no apparent distress, + thin Eyes: bilateral eyes normal inspection, bilateral eyes PERRL, bilateral eyes EOMI ENT: normal ENT inspection, hearing grossly normal, pharynx normal Neck: supple, no adenopathy, thyroid normal, no JVD, no carotid bruits, trachea midline Respiratory/Chest: chest non-tender, no respiratory distress, no accessory muscle use, + rhonchi Cardiovascular: no edema, no JVD, + irregularly irregular Abdomen: normal bowel sounds, non tender, soft, no organomegaly, no pulsatile mass Extremities: normal inspection, no pedal edema, no calf tenderness Neurologic/Psychiatric: machine coremaker II-XII nml as tested, no motor/sensory deficits, alert, normal mood/affect, oriented x 3 Skin: normal color, warm/dry, no rash Lymphatic: no adenopathy Assessment and Plan 1. atrial fibrillation chronic rates improved, would cont current dose of metoprolol cont Eliquis anticoagulation 2. volume status does not examine as volume overloaded would hold fluids and diuretics for now 3. pneumonia
--- NOTE | 2017-04-30 19:44 | Progress Note ---
Medicine Progress Note Date & Time of Visit: Apr 30, 2017 at 14:40 . Subjective No fever. Intermittent nonproductive cough. No dyspnea. No chest pain. No nausea or vomiting. Intermittent loose stools. Still has Alves catheter. . Objective Last 8 Hrs Date Time Temp Pulse Resp B/P (MAP) Pulse Ox O2 Delivery O2 Flow Rate FiO2 04/30/17 19:10 75 18 97 Nasal Cannula 2.0 04/30/17 17:14 108 141/77 (98) 04/30/17 16:00 Nasal Cannula 2.0 04/30/17 15:40 36.7 102 18 119/77 (91) 95 Nasal Cannula 2.0 04/30/17 12:00 36.7 98 20 123/76 (92) 97 Nasal Cannula 2.0 04/30/17 12:00 97 Nasal Cannula 2.0 Physical Exam: General- sitting in chair at bedside, no acute distress Neck- no JVD Lungs- bibasilar coarse rales Heart- irregular, no gallop appreciated Abdomen- + BS, soft, nontender Extremities- no pretibial edema or calf tenderness Neuro- alert, mild dysarthria, left facial palsy, LUE 0/5, LLE 3-4/5 . Laboratory Results: Last 24 Hours Test 04/30/17 07:17 Sodium Level 139 mmol/L Potassium Level 3.3 mmol/L Chloride Level 107 mmol/L Carbon Dioxide Level 24 mmol/L Anion Gap 9.0 mmol/L Blood Urea Nitrogen 5 mg/dl Creatinine 0.51 mg/dl Est Creatinine Clear Calc Drug Dose 62.0 ml/min Estimated GFR () 98.8 Estimated GFR (Non- 85.3 BUN/Creatinine Ratio 10.5 Random Glucose 107 mg/dl Calcium Level 8.8 mg/dl Assessment & Plan PNEUMONIA Suspect aspiration pneumonia secondary to recent stroke. Blood cultures obtained. Receiving IV vancomycin and piperacillin / tazobactam. Afebrile. Adequate oxygenation on NC. Blood cultures negative so far. Nasal MRSA screen negative, so MRSA pneumonia unlikely. Stopped vancomycin. Continue piperacillin / tazobactam. POSSIBLE SEPSIS Met criteria for sepsis at time of admission per 2001 definition and current CMS criteria - leukocytosis, tachycardia, tachypnea. Blood pressures as low as 88/49 day of admission. Received gentle fluid resuscitation in light of her cardiac status. Serum lactate 1.09. Pro-calcitonin 0.15. Blood cultures obtained. Received broad spectrum antibiotic coverage as noted above. PULMONARY ASPIRATION Recent stroke. FLOWER POT PRESS OPERATOR consulted. Video fluoroscopy demonstrated trace aspiration of thin barium liquid. Aspiration precautions. 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 Continue anticoagulation with apixaban. Continue PT, OT, FLOWER POT PRESS OPERATOR. ATRIAL FIBRILLATION Rate initially fast at times. Received digoxin PRN for rate control. Metoprolol dose adjusted. Continue apixaban. HYPERTENSION Continue metoprolol. Follow and titrate therapy. GASTRIC ULCER Continue PPI. Needs f/u EGD when medical status allows. CKD III Serum creatinine stable. Follow. ORAL THRUSH Nystatin. DIARRHEA C diff negative. HEMORRHOIDAL BLEEDING Need to continue anticoagulation due to high risk of recurrent cardioembolic events. Anusol HC suppositories. ALVES CATHETER DC. VTE PROPHYLAXIS Continue apixaban. Ambulate as able. DISPOSITION Expected return to [facility] for inpatient rehab. . Current Inpatient Medications: Current Inpatient Medications Medications (Trade) Dose Ordered Sig/Marielos Route Start Time Stop Time Status Last Admin Dose Admin Acetaminophen (Tylenol Tab) 650 mg Q4H PRN PO 04/27/17 11:45 05/27/17 11:44 04/28/17 23:58 650 MG Ondansetron HCl (Zofran Inj) 4 mg Q6H PRN IV 04/27/17 11:45 05/27/17 11:44 Levalbuterol (Xopenex 1.25MG/ 3ML Neb) 1.25 mg Q6R INH 04/27/17 15:00 05/27/17 14:59 04/30/17 19:10 1.25 MG Ipratropium [place] (Atrovent 0.02% 0.5MG/2.5ML Neb) 0.5 mg Q6R INH 04/27/17 15:00 05/27/17 14:59 04/30/17 19:09 0.5 MG Piperacillin Sod/ Tazobactam Sod (Consult) 1 ea UD PRN N/A 04/27/17 12:30 05/27/17 12:29 Apixaban (Eliquis Tab) 2.5 mg BID PO 04/27/17 21:00 05/27/17 20:59 04/30/17 09:41 2.5 MG Calcium/Vitamin D (Caltrate Plus Tab) 1 tab DAILY PO 04/28/17 09:00 05/28/17 08:59 04/30/17 09:41 1 TAB Cholecalciferol (Vitamin D Tab) 1,000 inter.unit DAILY PO 04/28/17 09:00 05/28/17 08:59 04/30/17 09:40 1,000 INTER.UNIT Docusate Sodium (coLACE CAP) 100 mg BID PO 04/27/17 21:00 05/27/17 20:59 04/30/17 09:42 100 MG Guaifenesin (Mucinex Contr Rel Tab) 600 mg TIDM PO 04/27/17 17:00 05/27/17 17:59 04/30/17 17:15 600 MG Levothyroxine Sodium (Synthroid Tab) 50 mcg DAILYBB PO 04/28/17 06:30 05/28/17 06:29 04/30/17 05:45 50 MCG Nystatin (Mycostatin Oint) 1 appln BID EXT 04/27/17 21:00 05/27/17 20:59 04/30/17 09:44 1 APPLN Rosuvastatin Calcium (Crestor Tab) 10 mg QPM PO 04/27/17 21:00 05/27/17 20:59 04/29/17 20:32 10 MG Senna/Docusate Sodium (Senokot S Tab) 1 tab DAILY PRN PO 04/27/17 12:45 05/27/17 12:44 Polyethylene (Miralax Powder Packet) 17 gm DAILY PRN PO 04/27/17 12:45 05/27/17 12:44 Pantoprazole Sodium (Protonix Tab) 40 mg QAM PO 04/28/17 09:00 05/28/17 08:59 04/30/17 09:39 40 MG Piperacillin Sod/ Tazobactam Sod 3.375 gm/Dextrose 115 ml @ 28.75 mls/ hr Q8H IV 04/27/17 16:00 05/04/17 15:59 04/30/17 16:28 28.75 MLS/HR Calcium Carbonate (Tums Chew Tab) 500 mg Q4H PRN PO 04/27/17 21:30 05/27/17 21:29 04/27/17 21:44 500 MG Nystatin (Mycostatin Susp) 5 ml QID PO 04/29/17 09:00 05/09/17 08:59 04/30/17 17:16 5 ML Potassium Chloride (Klor-Con Tab) 20 meq BID PO 04/29/17 21:00 05/29/17 20:59 04/30/17 09:41 20 MEQ Metoprolol Tartrate (Lopressor Tab) 25 mg BID17 PO 04/30/17 09:00 05/27/17 17:59 04/30/17 17:15 25 MG
[2017-04-30] MEDS: ROSUVASTATIN CALCIUM 10 MG TAB PO SCH (20:52)
[2017-05-01] VITALS (15 sets, daily range): BP systolic 119–172; BP diastolic 75–104; PULSE 80–118; TEMP 36.2–37.1; O2SAT 92–97
[2017-05-01] MEDS: LEVALBUTEROL 1.25MG/3ML NEB INH SCH ×4 (01:44→18:57)
[2017-05-01] MEDS: IPRATROPIUM BROMIDE NEB SOLN 0.02% 2.5 ML VIAL INH SCH ×4 (01:44→18:57)
[2017-05-01] MEDS: LEVOTHYROXINE 50 MCG TAB PO SCH (05:38)
[2017-05-01] MEDS: METOPROLOL TARTRATE 25 MG TAB PO SCH ×2 (08:22→17:15)
[2017-05-01] MEDS: PIPERACILL/TAZOBAC IV 3.375 GM in DEXTROSE 5% 100ML IV SCH ×2 (08:22→15:46)
[2017-05-01] MEDS: CHOLECALCIFEROL 1000 INTER.UNIT TAB PO SCH (08:23)
[2017-05-01] MEDS: PANTOprazole SOD 40 MG TAB PO SCH (08:23)
[2017-05-01] MEDS: GUAIFENESIN 600 MG TABCR PO SCH ×3 (08:23→17:00)
[2017-05-01] MEDS: NYSTATIN SUSP 500,000 U/5 ML UDC PO SCH ×4 (08:23→21:01)
[2017-05-01] MEDS: DOCUSATE SODIUM 100 MG CAP PO SCH ×2 (08:24→20:59)
[2017-05-01] MEDS: NYSTATIN OINT 15 GM TUBE EXT SCH ×2 (08:24→20:58)
[2017-05-01] MEDS: APIXABAN 2.5 MG TAB PO SCH ×2 (08:24→21:01)
[2017-05-01] MEDS: CALCIUM 600MG + VIT D 400 IU TAB PO SCH (08:25)
[2017-05-01] MEDS ORDERED: METOPROLOL TARTRATE 25 MG TAB PO ONE (10:30)
--- NOTE | 2017-05-01 11:02 | Cardiology Follow-Up ---
Subjective Subjective Date of Service: May 01, 2017. Pt evaluation today including: conversation w/ patient, physical exam, chart review, lab review, review of studies, review of inpatient medication list Additional Details: Pt seen and examined, oob in chair. States that she just feels weak. Denies specific complaints of chest pain, sob, palpitations, lightheadedness or dizziness. Tele reviewed: atrial fibrillation rates into 100's-110's Review of Systems Respiratory: + cough, + shortness of breath, No see HPI, No sputum, No wheezing , No dyspnea on exertion, No dyspnea at rest, No hemoptysis, No problem reported Cardiac: No see HPI, No chest pain, No orthopnea, No PND, No edema, No claudication, No palpitations, No problem reported Objective Vital Signs Last Vital Signs Documentation Date Time Temp Pulse Resp B/P (MAP) Pulse Ox O2 Delivery O2 Flow Rate FiO2 05/01/17 08:00 95 Nasal Cannula 2.0 05/01/17 07:49 37.0 115 20 129/84 (99) Physical Exam: General Appearance: WD/WN, no apparent distress, + thin Eyes: bilateral eyes normal inspection, bilateral eyes PERRL, bilateral eyes EOMI ENT: normal ENT inspection, hearing grossly normal, pharynx normal Neck: supple, no adenopathy, thyroid normal, no JVD, no carotid bruits, trachea midline Respiratory/Chest: chest non-tender, no respiratory distress, no accessory muscle use, + rhonchi Cardiovascular: no edema, no JVD, + irregularly irregular Abdomen: normal bowel sounds, non tender, soft, no organomegaly, no pulsatile mass Extremities: normal inspection, no pedal edema, no calf tenderness Neurologic/Psychiatric: merchandise appraiser II-XII nml as tested, no motor/sensory deficits, alert, normal mood/affect, oriented x 3 Skin: normal color, warm/dry, no rash Lymphatic: no adenopathy Assessment and Plan 1. atrial fibrillation chronic rates elevated today will uptitrate metoprolol to 37.5mg bid and follow cont Eliquis anticoagulation 2. volume status does not examine as volume overloaded would hold fluids and diuretics for now 3. pneumonia
[2017-05-01] MEDS: ACETAMINOPHEN 325 MG TAB PO PRN (15:46)
--- NOTE | 2017-05-01 18:02 | Progress Note ---
Medicine Progress Note Date & Time of Visit: May 01, 2017 . Subjective No fever. Persistent cough, but somewhat better. No dyspnea. No chest pain. No nausea or vomiting. Still having loose stools, but not as frequently. Ramirez removed yesterday. Experiencing incontinence of urine, especially when coughing. Unable to swallow potassium tablets. . Objective Last 8 Hrs Date Time Temp Pulse Resp B/P (MAP) Pulse Ox O2 Delivery O2 Flow Rate FiO2 05/01/17 17:12 111 134/80 (98) 05/01/17 15:10 36.6 97 20 119/75 (90) 96 Nasal Cannula 2.0 05/01/17 14:44 104 14 96 Nasal Cannula 2.0 05/01/17 12:00 95 Nasal Cannula 2.0 05/01/17 12:00 36.8 118 20 138/82 (100) 95 Nasal Cannula 2.0 Physical Exam: General- sitting in chair, no distress Neck- no JVD Lungs- bibasilar coarse rales, scattered rhonchi, mild wheezing Heart- irregular, no gallop appreciated Abdomen- + BS, soft, nontender Extremities- no pretibial edema or calf tenderness Neuro- alert, mild dysarthria, left facial palsy, LUE 0/5, LLE 3-4/5 . Laboratory Results: Date/Time Source Procedure Growth Status 05/01/17 05:45 Stool C.difficile Toxin B Gene (PCR) - Final No C. difficile toxin B gene detected Complete Assessment & Plan PNEUMONIA Suspect aspiration pneumonia secondary to recent stroke. Blood cultures obtained. Received IV vancomycin and piperacillin / tazobactam. Afebrile. Adequate oxygenation on NC. Blood cultures negative so far. Nasal MRSA screen negative, so MRSA pneumonia unlikely. Stopped vancomycin. Chest congestion and wheezing; add intravenous methylprednisolone. Continue piperacillin / tazobactam. POSSIBLE SEPSIS Met criteria for sepsis at time of admission per 2001 definition and current CMS criteria - leukocytosis, tachycardia, tachypnea. Blood pressures as low as 88/49 day of admission. Received gentle fluid resuscitation in light of her cardiac status. Serum lactate 1.09. Pro-calcitonin 0.15. Blood cultures obtained. Received broad spectrum antibiotic coverage as noted above. PULMONARY ASPIRATION Recent stroke. ARCHITECTURAL EXAMINER consulted. Video fluoroscopy demonstrated trace aspiration of thin barium liquid. Aspiration precautions. 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 Continue anticoagulation with apixaban. Continue PT, OT, ARCHITECTURAL EXAMINER. ATRIAL FIBRILLATION Rate initially fast at times. Received digoxin PRN for rate control. Metoprolol dose adjusted. Continue apixaban. HYPERTENSION Continue metoprolol. Follow and titrate therapy. GASTRIC ULCER Continue PPI. Needs f/u EGD when medical status allows. CKD III Serum creatinine stable. Follow. ORAL THRUSH Nystatin. DIARRHEA C diff negative. HEMORRHOIDAL BLEEDING Need to continue anticoagulation due to high risk of recurrent cardioembolic events. Anusol HC suppositories. VTE PROPHYLAXIS Continue apixaban. Ambulate as able. DISPOSITION Expected return to [facility] for inpatient rehab. . Current Inpatient Medications: Current Inpatient Medications Medications (Trade) Dose Ordered Sig/Marielos Route Start Time Stop Time Status Last Admin Dose Admin Acetaminophen (Tylenol Tab) 650 mg Q4H PRN PO 04/27/17 11:45 05/27/17 11:44 05/01/17 15:46 650 MG Ondansetron HCl (Zofran Inj) 4 mg Q6H PRN IV 04/27/17 11:45 05/27/17 11:44 Levalbuterol (Xopenex 1.25MG/ 3ML Neb) 1.25 mg Q6R INH 04/27/17 15:00 05/27/17 14:59 05/01/17 14:43 1.25 MG Ipratropium [place] (Atrovent 0.02% 0.5MG/2.5ML Neb) 0.5 mg Q6R INH 04/27/17 15:00 05/27/17 14:59 05/01/17 14:43 0.5 MG Piperacillin Sod/ Tazobactam Sod (Consult) 1 ea UD PRN N/A 04/27/17 12:30 05/27/17 12:29 Apixaban (Eliquis Tab) 2.5 mg BID PO 04/27/17 21:00 05/27/17 20:59 05/01/17 08:24 2.5 MG Calcium/Vitamin D (Caltrate Plus Tab) 1 tab DAILY PO 04/28/17 09:00 05/28/17 08:59 05/01/17 08:25 1 TAB Cholecalciferol (Vitamin D Tab) 1,000 inter.unit DAILY PO 04/28/17 09:00 05/28/17 08:59 05/01/17 08:23 1,000 INTER.UNIT Docusate Sodium (coLACE CAP) 100 mg BID PO 04/27/17 21:00 05/27/17 20:59 05/01/17 08:24 100 MG Guaifenesin (Mucinex Contr Rel Tab) 600 mg TIDM PO 04/27/17 17:00 05/27/17 17:59 05/01/17 08:23 600 MG Levothyroxine Sodium (Synthroid Tab) 50 mcg DAILYBB PO 04/28/17 06:30 05/28/17 06:29 05/01/17 05:38 50 MCG Nystatin (Mycostatin Oint) 1 appln BID EXT 04/27/17 21:00 05/27/17 20:59 05/01/17 08:24 1 APPLN Rosuvastatin Calcium (Crestor Tab) 10 mg QPM PO 04/27/17 21:00 05/27/17 20:59 04/30/17 20:52 10 MG Senna/Docusate Sodium (Senokot S Tab) 1 tab DAILY PRN PO 04/27/17 12:45 05/27/17 12:44 Polyethylene (Miralax Powder Packet) 17 gm DAILY PRN PO 04/27/17 12:45 05/27/17 12:44 Pantoprazole Sodium (Protonix Tab) 40 mg QAM PO 04/28/17 09:00 05/28/17 08:59 05/01/17 08:23 40 MG Piperacillin Sod/ Tazobactam Sod 3.375 gm/Dextrose 115 ml @ 28.75 mls/ hr Q8H IV 04/27/17 16:00 05/04/17 15:59 05/01/17 15:46 28.75 MLS/HR Calcium Carbonate (Tums Chew Tab) 500 mg Q4H PRN PO 04/27/17 21:30 05/27/17 21:29 04/27/17 21:44 500 MG Nystatin (Mycostatin Susp) 5 ml QID PO 04/29/17 09:00 05/09/17 08:59 05/01/17 17:15 5 ML Metoprolol Tartrate (Lopressor Tab) 37.5 mg BID17 PO 05/01/17 17:00 05/27/17 17:59 05/01/17 17:15 37.5 MG Potassium Chloride (Klor-Con Pwd) 20 meq BID PO 05/01/17 21:00 05/31/17 20:59 UNV Methylprednisolone Sodium Succinate 20 mg/Syringe 0.32 ml @ 1.5 mls/min BID IV 05/01/17 21:00 05/31/17 20:59 UNV
[2017-05-01] MEDS: METHYLPREDNISOLONE IV 20 MG in SYRINGE 0 ML IV SCH (20:59)
[2017-05-01] MEDS: ROSUVASTATIN CALCIUM 10 MG TAB PO SCH (21:00)
[2017-05-01] MEDS: POTASSIUM CHLORIDE PWD 20 MEQ PACK PO SCH (21:01)
[2017-05-02] VITALS (12 sets, daily range): BP systolic 103–135; BP diastolic 62–78; PULSE 78–122; TEMP 36.3–36.6; O2SAT 91–98
[2017-05-02] MEDS: PIPERACILL/TAZOBAC IV 3.375 GM in DEXTROSE 5% 100ML IV SCH ×3 (00:09→15:54)
[2017-05-02] MEDS: LEVALBUTEROL 1.25MG/3ML NEB INH SCH ×4 (01:45→19:46)
[2017-05-02] MEDS: IPRATROPIUM BROMIDE NEB SOLN 0.02% 2.5 ML VIAL INH SCH ×4 (01:46→19:46)
[2017-05-02] MEDS: LEVOTHYROXINE 50 MCG TAB PO SCH (06:12)
[2017-05-02] MEDS: METHYLPREDNISOLONE IV 20 MG in SYRINGE 0 ML IV SCH ×2 (08:22→20:59)
[2017-05-02] MEDS: NYSTATIN OINT 15 GM TUBE EXT SCH ×2 (08:22→20:59)
[2017-05-02] MEDS: METOPROLOL TARTRATE 25 MG TAB PO SCH ×2 (08:22→17:33)
[2017-05-02] MEDS: CALCIUM 600MG + VIT D 400 IU TAB PO SCH (08:23)
[2017-05-02] MEDS: PANTOprazole SOD 40 MG TAB PO SCH (08:23)
[2017-05-02] MEDS: POTASSIUM CHLORIDE PWD 20 MEQ PACK PO SCH ×2 (08:23→21:00)
[2017-05-02] MEDS: GUAIFENESIN 600 MG TABCR PO SCH ×3 (08:23→17:30)
[2017-05-02] MEDS: APIXABAN 2.5 MG TAB PO SCH ×2 (08:23→21:01)
[2017-05-02] MEDS: DOCUSATE SODIUM 100 MG CAP PO SCH ×2 (08:23→20:59)
[2017-05-02] MEDS: CHOLECALCIFEROL 1000 INTER.UNIT TAB PO SCH (08:23)
[2017-05-02] MEDS: NYSTATIN SUSP 500,000 U/5 ML UDC PO SCH ×4 (08:24→21:01)
--- NOTE | 2017-05-02 16:21 | Cardiology Follow-Up ---
Subjective Subjective Date of Service: May 02, 2017. Pt evaluation today including: conversation w/ patient, physical exam, chart review, lab review, review of studies, review of inpatient medication list Additional Details: Pt seen and examined, states that she's breathing easier today. Denies cp, palpitations, lightheadedness or dizziness. Tele reviewed: afib rates 90's-110's Review of Systems Respiratory: + cough, + shortness of breath, No see HPI, No sputum, No wheezing , No dyspnea on exertion, No dyspnea at rest, No hemoptysis, No problem reported Cardiac: No see HPI, No chest pain, No orthopnea, No PND, No edema, No claudication, No palpitations, No problem reported Objective Vital Signs Last Vital Signs Documentation Date Time Temp Pulse Resp B/P (MAP) Pulse Ox O2 Delivery O2 Flow Rate FiO2 05/02/17 14:50 36.3 115 18 127/77 (94) 95 05/02/17 14:21 Room Air 05/02/17 07:46 2.0 Physical Exam: General Appearance: WD/WN, no apparent distress, + thin Eyes: bilateral eyes normal inspection, bilateral eyes PERRL, bilateral eyes EOMI ENT: normal ENT inspection, hearing grossly normal, pharynx normal Neck: supple, no adenopathy, thyroid normal, no JVD, no carotid bruits, trachea midline Respiratory/Chest: chest non-tender, no respiratory distress, no accessory muscle use, + rhonchi Cardiovascular: no edema, no JVD, + irregularly irregular Abdomen: normal bowel sounds, non tender, soft, no organomegaly, no pulsatile mass Extremities: normal inspection, no pedal edema, no calf tenderness Neurologic/Psychiatric: sleeping bag filler II-XII nml as tested, no motor/sensory deficits, alert, normal mood/affect, oriented x 3 Skin: normal color, warm/dry, no rash Lymphatic: no adenopathy Assessment and Plan 1. atrial fibrillation chronic rates variable will hold off further uptitration of metoprolol at this point cont metoprolol 37.5mg bid and follow cont Eliquis anticoagulation 2. volume status does not examine as volume overloaded would hold fluids and diuretics for now 3. pneumonia
--- NOTE | 2017-05-02 16:30 | Progress Note ---
Medicine Progress Note Date & Time of Visit: May 02, 2017 at 14:10 . Subjective No fever. Persistent cough, less SOB. No chest pain. Remains in atrial fib with rapid rate at times. Metoprolol dose adjusted by Cardiology. No nausea or vomiting. Continues to have loose stools. Continues to have urinary incontinence since Ramirez removed. Family visiting. . Objective Last 8 Hrs Date Time Temp Pulse Resp B/P (MAP) Pulse Ox O2 Delivery O2 Flow Rate FiO2 05/02/17 14:50 36.3 115 18 127/77 (94) 95 05/02/17 14:21 102 16 95 Room Air 05/02/17 12:00 Room Air 05/02/17 11:11 36.4 105 18 113/62 (79) 95 Physical Exam: General- sitting in chair, no distress Neck- no JVD Lungs- wheezing, rhonchi improved Heart- irregular, no gallop appreciated Abdomen- + BS, soft, nontender Extremities- no pretibial edema or calf tenderness Neuro- alert, mild dysarthria, left facial palsy, LUE 0/5, LLE 3-4/5 Skin- skin tear left forearm . Assessment & Plan PNEUMONIA Suspect aspiration pneumonia secondary to recent stroke. Blood cultures obtained. Received IV vancomycin and piperacillin / tazobactam. Afebrile. Adequate oxygenation on NC. Blood cultures negative so far. Nasal MRSA screen negative, so MRSA pneumonia unlikely. Stopped vancomycin. Chest congestion and wheezing improving with intravenous methylprednisolone. Transition from IV piperacillin / tazobactam to oral therapy with amoxicillin / sulbactam. Transition from IV steroids to PO. POSSIBLE SEPSIS Met criteria for sepsis at time of admission per 2001 definition and current CMS criteria - leukocytosis, tachycardia, tachypnea. Blood pressures as low as 88/49 day of admission. Received gentle fluid resuscitation in light of her cardiac status. Serum lactate 1.09. Pro-calcitonin 0.15. Blood cultures obtained. Received broad spectrum antibiotic coverage as noted above. PULMONARY ASPIRATION Recent stroke. [employer] consulted. Video fluoroscopy demonstrated trace aspiration of thin barium liquid. Aspiration precautions. 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 Continue anticoagulation with apixaban. Continue PT, OT, P[employer]. ATRIAL FIBRILLATION Rate initially fast at times. Received digoxin PRN for rate control. Metoprolol dose adjusted. Continue apixaban. HYPERTENSION Continue metoprolol. Follow and titrate therapy. GASTRIC ULCER Continue PPI. Needs f/u EGD when medical status allows. CKD III Serum creatinine stable. Follow. ORAL THRUSH Continue nystatin. DIARRHEA C diff negative. HEMORRHOIDAL BLEEDING Need to continue anticoagulation due to high risk of recurrent cardioembolic events. Anusol HC suppositories administered. Resolved. VTE PROPHYLAXIS Continue apixaban. Ambulate as able. DISPOSITION Expected return to [facility] for inpatient rehab when medically stable. Family visiting and given update. . Current Inpatient Medications: Current Inpatient Medications Medications (Trade) Dose Ordered Sig/Marielos Route Start Time Stop Time Status Last Admin Dose Admin Acetaminophen (Tylenol Tab) 650 mg Q4H PRN PO 04/27/17 11:45 05/27/17 11:44 05/01/17 15:46 650 MG Ondansetron HCl (Zofran Inj) 4 mg Q6H PRN IV 04/27/17 11:45 05/27/17 11:44 Levalbuterol (Xopenex 1.25MG/ 3ML Neb) 1.25 mg Q6R INH 04/27/17 15:00 05/27/17 14:59 05/02/17 14:18 1.25 MG Ipratropium [place] (Atrovent 0.02% 0.5MG/2.5ML Neb) 0.5 mg Q6R INH 04/27/17 15:00 05/27/17 14:59 05/02/17 14:17 0.5 MG Apixaban (Eliquis Tab) 2.5 mg BID PO 04/27/17 21:00 05/27/17 20:59 05/02/17 08:23 2.5 MG Calcium/Vitamin D (Caltrate Plus Tab) 1 tab DAILY PO 04/28/17 09:00 05/28/17 08:59 05/02/17 08:23 1 TAB Cholecalciferol (Vitamin D Tab) 1,000 inter.unit DAILY PO 04/28/17 09:00 05/28/17 08:59 05/02/17 08:23 1,000 INTER.UNIT Docusate Sodium (coLACE CAP) 100 mg BID PO 04/27/17 21:00 05/27/17 20:59 05/02/17 08:23 100 MG Guaifenesin (Mucinex Contr Rel Tab) 600 mg TIDM PO 04/27/17 17:00 05/27/17 17:59 05/02/17 11:21 600 MG Levothyroxine Sodium (Synthroid Tab) 50 mcg DAILYBB PO 04/28/17 06:30 05/28/17 06:29 05/01/17 05:38 50 MCG Nystatin (Mycostatin Oint) 1 appln BID EXT 04/27/17 21:00 05/27/17 20:59 05/02/17 08:22 1 APPLN Rosuvastatin Calcium (Crestor Tab) 10 mg QPM PO 04/27/17 21:00 05/27/17 20:59 05/01/17 21:00 10 MG Senna/Docusate Sodium (Senokot S Tab) 1 tab DAILY PRN PO 04/27/17 12:45 05/27/17 12:44 Polyethylene (Miralax Powder Packet) 17 gm DAILY PRN PO 04/27/17 12:45 05/27/17 12:44 Pantoprazole Sodium (Protonix Tab) 40 mg QAM PO 04/28/17 09:00 05/28/17 08:59 05/02/17 08:23 40 MG Calcium Carbonate (Tums Chew Tab) 500 mg Q4H PRN PO 04/27/17 21:30 05/27/17 21:29 04/27/17 21:44 500 MG Nystatin (Mycostatin Susp) 5 ml QID PO 04/29/17 09:00 05/09/17 08:59 05/02/17 13:28 5 ML Metoprolol Tartrate (Lopressor Tab) 37.5 mg BID17 PO 05/01/17 17:00 05/27/17 17:59 05/02/17 08:22 37.5 MG Potassium Chloride (Klor-Con Pwd) 20 meq BID PO 05/01/17 21:00 05/31/17 20:59 05/02/17 08:23 20 MEQ Methylprednisolone Sodium Succinate 20 mg/Syringe 0.32 ml @ 1.5 mls/min BID IV 05/01/17 21:00 05/31/17 20:59 05/02/17 08:22 1.5 MLS/MIN Amoxicillin/ Clavulanate Potassium (Augmentin Es 600 Mg/42.9mg 5 ml Susp) 600 mg BIDM PO 05/02/17 17:00 05/09/17 16:59
[2017-05-02] MEDS: AMOXICILLIN/CLAV POTAS 600 MG/42.9MG/5 ML 75 ML PO SCH (17:33)
[2017-05-02] MEDS: ROSUVASTATIN CALCIUM 10 MG TAB PO SCH (21:00)
[2017-05-03] VITALS (9 sets, daily range): BP systolic 116–125; BP diastolic 68–88; PULSE 89–104; TEMP 36.2–36.6; O2SAT 90–95
[2017-05-03] MEDS: IPRATROPIUM BROMIDE NEB SOLN 0.02% 2.5 ML VIAL INH SCH ×3 (02:15→14:23)
[2017-05-03] MEDS: LEVALBUTEROL 1.25MG/3ML NEB INH SCH ×3 (02:15→14:23)
[2017-05-03] MEDS: LEVOTHYROXINE 50 MCG TAB PO SCH (06:07)
--- NOTE | 2017-05-03 07:11 | DIAGNOSTIC IMAGING REPORT ---
CHEST ONE VIEW PORTABLE HISTORY: f/u pneumonia COMPARISON: Chest 04/27/2017. FINDINGS: Left lower lobe airspace opacity and a small left pleural effusion persists. The right lung remains clear. The heart is stable in size. No pneumothorax. IMPRESSION: No change in the left lower lobe airspace opacity and small left pleural effusion. Recommend follow-up to ensure resolution. Electronically signed by: Zbigniew Valle M.D. 05/03/2017 7:10 AM Dictated Date/Time: 05/03/2017 7:09 AM
[2017-05-03] MEDS: GUAIFENESIN 600 MG TABCR PO SCH (07:56)
[2017-05-03] MEDS: NYSTATIN OINT 15 GM TUBE EXT SCH (07:56)
[2017-05-03] MEDS: APIXABAN 2.5 MG TAB PO SCH (07:57)
[2017-05-03] MEDS: DOCUSATE SODIUM 100 MG CAP PO SCH (07:57)
[2017-05-03] MEDS: CALCIUM 600MG + VIT D 400 IU TAB PO SCH (07:57)
[2017-05-03] MEDS: POTASSIUM CHLORIDE PWD 20 MEQ PACK PO SCH (07:58)
[2017-05-03] MEDS: METOPROLOL TARTRATE 25 MG TAB PO SCH ×2 (07:59→17:38)
[2017-05-03] MEDS: NYSTATIN SUSP 500,000 U/5 ML UDC PO SCH ×3 (08:00→17:38)
[2017-05-03] MEDS: PANTOprazole SOD 40 MG TAB PO SCH (08:00)
[2017-05-03] MEDS: CHOLECALCIFEROL 1000 INTER.UNIT TAB PO SCH (08:01)
[2017-05-03] MEDS: METHYLPREDNISOLONE IV 20 MG in SYRINGE 0 ML IV SCH (08:01)
[2017-05-03] MEDS: AMOXICILLIN/CLAV POTAS 600 MG/42.9MG/5 ML 75 ML PO SCH ×2 (08:04→17:36)
--- NOTE | 2017-05-03 16:32 | Progress Note ---
Medicine Progress Note Date & Time of Visit: May 03, 2017 at 09:10 . Subjective No fever. Occasional cough. No SOB. No chest pain. No nausea or vomiting. Unable to swallow large pills (potassium, Mucinex). Still having some loose stools. . Objective Last 8 Hrs Date Time Temp Pulse Resp B/P (MAP) Pulse Ox O2 Delivery O2 Flow Rate FiO2 05/03/17 15:16 36.3 103 17 124/88 (100) 95 05/03/17 14:23 94 16 95 Room Air 05/03/17 13:19 36.2 103 17 125/87 (100) 95 Room Air 05/03/17 12:00 Room Air Physical Exam: General- lying in bed, no distress Neck- no JVD Lungs- mild wheezing, few rhonchi (exam improved) Heart- irregular Abdomen- + BS, soft, nontender Extremities- no pretibial edema or calf tenderness Neuro- alert, mild dysarthria, left facial palsy, LUE 0/5, LLE 3-4/5 . Assessment & Plan PNEUMONIA Suspect aspiration pneumonia secondary to recent stroke. Blood cultures obtained. Received IV vancomycin and piperacillin / tazobactam. Afebrile. Adequate oxygenation on NC. Blood cultures negative so far. Nasal MRSA screen negative, so MRSA pneumonia unlikely. Stopped vancomycin. Chest congestion and wheezing improved with intravenous methylprednisolone. Transitioned from IV piperacillin / tazobactam to oral therapy with amoxicillin / sulbactam; will need 4 more days to complete 10 day course of therapy. Transitioned from IV steroids to PO prednisone. POSSIBLE SEPSIS Met criteria for sepsis at time of admission per 2001 definition and current CMS criteria - leukocytosis, tachycardia, tachypnea. Blood pressures as low as 88/49 day of admission. Received gentle fluid resuscitation in light of her cardiac status. Serum lactate 1.09. Pro-calcitonin 0.15. Blood cultures obtained. Received broad spectrum antibiotic coverage as noted above. PULMONARY ASPIRATION Recent stroke. PIPE INSULATOR HELPER consulted. Video fluoroscopy demonstrated trace aspiration of thin barium liquid. Aspiration precautions. 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 Continue anticoagulation with apixaban. Continue PT, OT, PIPE INSULATOR HELPER. ATRIAL FIBRILLATION Rate initially fast at times. Received digoxin PRN for rate control. Metoprolol dose adjusted. Continue apixaban. HYPERTENSION Continue metoprolol. Follow and titrate therapy. GASTRIC ULCER Continue PPI. Needs f/u EGD when medical status allows. CKD III Serum creatinine stable. Follow. ORAL THRUSH Improved with nystatin; change to PRN. DIARRHEA C diff negative. HEMORRHOIDAL BLEEDING One reported episode of hemorrhoidal bleeding. Need to continue anticoagulation due to high risk of recurrent cardioembolic events. Anusol HC suppositories PRN. VTE PROPHYLAXIS Continue apixaban. Ambulate as able. DISPOSITION Return to [facility] for inpatient rehab when medically stable. Long-term disposition to be determined. . Consultants: Cardiology . Procedures: cardiac monitoring IV meds videofluoroscopic swallowing study PT OT PIPE INSULATOR HELPER . Current Inpatient Medications: Current Inpatient Medications Medications (Trade) Dose Ordered Sig/Marielos Route Start Time Stop Time Status Last Admin Dose Admin Acetaminophen (Tylenol Tab) 650 mg Q4H PRN PO 04/27/17 11:45 05/27/17 11:44 05/01/17 15:46 650 MG Ondansetron HCl (Zofran Inj) 4 mg Q6H PRN IV 04/27/17 11:45 05/27/17 11:44 Levalbuterol (Xopenex 1.25MG/ 3ML Neb) 1.25 mg Q6R INH 04/27/17 15:00 05/27/17 14:59 05/03/17 14:23 1.25 MG Ipratropium [place] (Atrovent 0.02% 0.5MG/2.5ML Neb) 0.5 mg Q6R INH 04/27/17 15:00 05/27/17 14:59 05/03/17 14:23 0.5 MG Apixaban (Eliquis Tab) 2.5 mg BID PO 04/27/17 21:00 05/27/17 20:59 05/03/17 07:57 2.5 MG Calcium/Vitamin D (Caltrate Plus Tab) 1 tab DAILY PO 04/28/17 09:00 05/28/17 08:59 05/03/17 07:57 1 TAB Cholecalciferol (Vitamin D Tab) 1,000 inter.unit DAILY PO 04/28/17 09:00 05/28/17 08:59 05/03/17 08:01 1,000 INTER.UNIT Docusate Sodium (coLACE CAP) 100 mg BID PO 04/27/17 21:00 05/27/17 20:59 05/03/17 07:57 100 MG Levothyroxine Sodium (Synthroid Tab) 50 mcg DAILYBB PO 04/28/17 06:30 05/28/17 06:29 05/03/17 06:07 50 MCG Nystatin (Mycostatin Oint) 1 appln BID EXT 04/27/17 21:00 05/27/17 20:59 05/03/17 07:56 1 APPLN Rosuvastatin Calcium (Crestor Tab) 10 mg QPM PO 04/27/17 21:00 05/27/17 20:59 05/02/17 21:00 10 MG Senna/Docusate Sodium (Senokot S Tab) 1 tab DAILY PRN PO 04/27/17 12:45 05/27/17 12:44 Polyethylene (Miralax Powder Packet) 17 gm DAILY PRN PO 04/27/17 12:45 05/27/17 12:44 Pantoprazole Sodium (Protonix Tab) 40 mg QAM PO 04/28/17 09:00 05/28/17 08:59 05/03/17 08:00 40 MG Calcium Carbonate (Tums Chew Tab) 500 mg Q4H PRN PO 04/27/17 21:30 05/27/17 21:29 04/27/17 21:44 500 MG Nystatin (Mycostatin Susp) 5 ml QID PO 04/29/17 09:00 05/09/17 08:59 05/03/17 13:15 5 ML Metoprolol Tartrate (Lopressor Tab) 37.5 mg BID17 PO 05/01/17 17:00 05/27/17 17:59 05/03/17 07:59 37.5 MG Potassium Chloride (Klor-Con Pwd) 20 meq BID PO 05/01/17 21:00 05/31/17 20:59 05/03/17 07:58 20 MEQ Methylprednisolone Sodium Succinate 20 mg/Syringe 0.32 ml @ 1.5 mls/min BID IV 05/01/17 21:00 05/31/17 20:59 05/03/17 08:01 1.5 MLS/MIN Amoxicillin/ Clavulanate Potassium (Augmentin Es 600 Mg/42.9mg 5 ml Susp) 600 mg BIDM PO 05/02/17 17:00 05/09/17 16:59 05/03/17 08:04 600 MG
[2017-05-03] MEDS ORDERED: Potassium Chloride Pwd PO (16:46)
[2017-05-03] MEDS ORDERED: METO25TA56 PO (16:46)
[2017-05-03] MEDS ORDERED: CALC500C50 PO (16:46)
[2017-05-03] MEDS ORDERED: AMOX600S PO (16:46)
[2017-05-03] MEDS ORDERED: ACET1LIQ6 PO (16:46)
[2017-05-03] MEDS ORDERED: XPNINS PO (16:46)
[2017-05-03] MEDS ORDERED: ELQ25 PO (16:46)
[2017-05-03] MEDS ORDERED: NYSS5 PO (16:46)
[2017-05-03] MEDS ORDERED: RBTUDL5 PO (16:46)
[2017-05-03] MEDS ORDERED: PRED10TA PO (16:48)
--- NOTE | 2017-05-03 16:58 | Discharge Instructions ---
Discharge Instructions Date of Service May 03, 2017. Admission Reason for Admission: pneumonia . Discharge Discharge Diagnosis / Problem: pneumonia, probably due to aspiration; recent right MCA stroke; chronic AF Discharge Goals Goal(s): Improve function, Increase independence, Improve disease control Activity Recommendations Activity Level: Assistance Required Therapies: Physical Therapy, Occupational Therapy, Speech Therapy . Additional Information Patient informed of condition: Yes Advance Directives: Yes DNR: Yes Level of Care: Acute Rehab Communicable Disease: No Prognosis: Improving Oxygen at (LPM): PRN for SOB or O2 sat < 90% Ramirez Catheter: No Instructions / Follow-Up Instructions / Follow-Up PRIMARY CARE Irene Graf PA-C [facility] Please make arrangements for follow-up when discharged from [facility]. Thank you for receiving this patient in transfer. Please call if you have any questions. Carlos May . Current Hospital Diet Patient's current hospital diet: AHA Diet (Heart Healthy) Discharge Diet Recommended Diet: AHA Diet (Heart Healthy) Pending Studies Studies pending at discharge: no Physician Orders On Transfer Special Precautions: ASPIRATION PRECAUTIONS PER BAG END SEWER: Speech Therapy Discharge Instructions * Recommendin. Mechanical soft diet with thin liquids NO STRAWS, SINGLE SWALLOWS 2. Aspiration precautions 3. Safe swallow strategies (SMAL bites, SMALL sips, SLOW rate) 4. Consideration for supervision with meals to cue for safe swallow strategies specifically SINGLE swallows and slow rate FALL PRECAUTIONS SKIN PRECAUTIONS reposition at least q 2 hrs . Dressing Changes: skin tear left forearm- apply Optifoam; change daily + PRN . Vital Signs: routine . Additional Orders: Please check basic metabolic twice a week until stable, then as clinically indicated. . POLST Discussion: without POLST completion Medical Emergencies . Who to Call and When: Medical Emergencies: If at any time you feel your situation is an emergency, please call 911 immediately. . Non-Emergent Contact Non-Emergency issues call your: Primary Care Provider, Hospital Doctor . . "Provider Documentation" section prepared by Carlos May. . Core Measure Problem Core Measures: None
--- NOTE | 2017-05-03 17:04 | Discharge Summary ---
Discharge Summary Date of Service May 03, 2017. Discharge Summary Admission Date: Apr 27, 2017 at 11:13 Discharge Date: May 03, 2017 Discharge Disposition: Rehab (Critical access hospital) Principal Diagnosis: aspiration pneumonia OTHER ACUTE DIAGNOSES possible sepsis atrial fibrillation with rapid ventricular response . Secondary Diagnoses/Problems: Chronic and Resolved Medical Problems: (1) Chronic atrial fibrillation Status: Chronic (2) Elbow fracture, left Permanent Comment: s/p repair Status: Chronic (3) Femoral fracture Permanent Comment: s/p rodding Status: Chronic (5) History of gastric ulcer Status: Chronic (6) History of right MCA stroke Status: Chronic (7) HLD (hyperlipidemia) Status: Chronic (8) HTN (hypertension) Status: Chronic (9) Osteoporosis Status: Chronic Surgical Problems: (1) History of bowel resection Status: Chronic (2) History of total hip replacement Status: Chronic . Procedures: cardiac monitoring IV meds videofluoroscopic swallowing study PT OT PORTFOLIO SPECIALIST . Consultations: Cardiology . Medication Reconciliation New Medications: Acetaminophen (Acetaminophen) 160 Mg/5 Ml Liq 10 ML PO Q4 PRN for Pain for 30 Days Calcium Carbonate (Antacid) (Tums) 500 Mg Chw 500 MG PO BID for 999 Days, TAB Guaifenesin (Robitussin) 100 Mg/5 Ml Claudia 5 ML PO Q6 PRN for Cough for 30 Days Levalbuterol (Levalbuterol HCl) 0.63 Mg/3 Ml Nebu 0.63 MG PO Q6 PRN for wheezing for 30 Days Metoprolol Tartrate (Lopressor) (Lopressor) 25 Mg Tab 37.5 MG PO BID for 999 Days, TAB New dose 05/03/17. Prednisone Tab (Prednisone) 10 Mg Tab 40 MG PO DAILY for 4 Days, #16 TAB Amoxicillin & Pot Clavulanate (Amoxicillin/Clavulanate P) 1 Machelle Machelle 600 MG PO BIDM for 4 Days, #8 DOSE Apixaban (Eliquis) 2.5 Mg Tab 2.5 MG PO BID for 999 Days, TAB Long-term therapy. May need new Rx at time of DC. Nystatin (Nystatin) 5 Ml Susp 5 ML PO QID PRN for oral thrush for 30 Days [Potassium Chloride Pwd] () 20 MEQ PACK 20 MEQ PO DAILY for 7 Days Treat for 7 days, then re-evaluate based on lab results. Continued Medications: Amlodipine (Norvasc) 5 Mg Tab 5 MG PO QAM, TAB Cholecalciferol (Vitamin D-1000) 1,000 Unit Tab 1 TAB PO DAILY Levothyroxine Sodium (Synthroid) 50 Mcg Tab 50 MCG PO DAILY, TAB Nystatin (Topical) (Nystatin) 100,000 Unit/Gm Oin 1 APPLN TOP BID for 5 Days, #15 GM 1 Refill apply top, powder, groin R groin L indication Candidiasis of Skin BID Polyethylene Glycol 3350 (Bulk (Polyethylene Glycol 3350) 1 Pow Pow 17 GM PO DAILY PRN for Constipation, #255 GM Polyethylene Glycol-Propylene (Lubricant Eye Drops) 1 Leonel Leonel 1 DROP OP BID PRN for DRYNESS Rosuvastatin Calcium (Crestor) 10 Mg Tab 10 MG PO QPM Discontinued Medications: Acetaminophen (Tylenol) 500 Mg Tab 500 MG PO Q4 PRN for Pain, TAB Albuterol Sulf (Proventil 0.083% 2.5MG/3ML) 2.5 Mg/3 Ml Nebu 2.5 MG INH Q4 PRN for Shortness of Breath, EA Benzonatate (Tessalon Perles) 200 Mg Cap 200 MG PO TID PRN for Cough, CAP Bisacodyl (Bisacodyl) 5 Mg Tab 10 SUPP PO UD PRN for Constipation for 1 Day, #4 TAB Calcium/Vitamin D (Os-Octaviano 500 Plus D) Tab 1 TAB PO DAILY, TAB Docusate Sodium (Docusate Sodium) 100 Mg Cap 1 CAP PO BID for 7 Days, #14 CAP Guaifenesin La (Guaifenesin Er) 600 Mg Tabcr 600 MG PO TIDM, TAB Ipratropium-Albuterol (Duoneb) 3 Ml Nebu 3 ML INH Q4H, INHA Levofloxacin (Levaquin) 750 Mg Tab 750 MG PO DAILY, TAB Magnesium Hydroxide (Milk Of Magnesia) 30 Ml Susp 30 ML PO DAILY PRN for Constipation, ML Metoprolol Tartrate (Lopressor) (Lopressor) 25 Mg Tab 25 MG PO BID Ondansetron Hcl (Zofran) 8 Mg Tab 8 MG PO Q8 PRN for Nausea or Vomiting, TAB Senna/Docusate Sod (Senokot S) 1 Tab Tab 1 TAB PO DAILY PRN for Constipation, TAB Sodium Phosphate/Biphosphate (Fleet Enema) Zuleyma 1 EA ND DAILY PRN for Constipation, BTL Tramadol (Ultram) 50 Mg Tab 50 MG PO Q4H PRN for Pain, TAB Admission Information HPI (per Admitting provider): 89 year old female who is sent from [facility] for tachycardia and worsening respiratory status. Some history is obtained from outpatient records. Patient has history of atrial fibrillation and had been anticoagulated on Xarelto however developed a gastric ulcer with bleeding while taking Doxycycline. Xarelto was held and patient unfortunately suffered a right MCA stroke. She was treated at [facility]. Patient was evaluated by GI, cardiology, and neurology who decided to resume anticoagulation with Eliquis. Patient was then transferred to a SNF. She continued to improve and was then transferred to [facility]. I discussed the case with SILVERIO Cervantes at [facility]. She reports that since the patient has arrived there she has had a moist cough that has been progressively getting worse. She also is now requiring 2L of oxygen. Patient was treated for a UTI with Bactrim a couple of weeks ago. Due to her worsening cough, she was started on Levaquin on 04/24 for a suspected pneumonia. Blood pressures were also running low so her Lisinopril was discontinued recently. Since yesterday, patient's heart rate has been persistently in the 130s so she was sent to the ED for further evaluation. Patient reports a persistent cough. She reports it is moist but non productive. She has some mild exertional shortness of breath. Staff at [facility] report that they have noticed her to be coughing with her pills and meals at times. Patient denies chest pain and palpitations. No lightheadedness, dizziness, diaphoresis, or syncopal events. She reports some nausea a couple of days ago with one episode of vomiting. She attributes this to the Levaquin. Her appetite has been poor. No abdominal pain or diarrhea. She denies urinary symptoms. In the ED, patient' s HR continues to be in the 130s and with borderline BPs with systolic in the 90s-low 100s. WBC 12K, POC lactate is normal. CXR shows a left base infiltrate/ effusion. She was given 250ml IVF and Zosyn. . Physical Exam (per Admitting): General Appearance: WD/WN, no apparent distress, + pertinent finding (ill appearing) Head: normocephalic, atraumatic Eyes: normal inspection, EOMI, sclerae normal ENT: hearing grossly normal, + pertinent finding (mucous membranes moist) Neck: supple, no JVD, trachea midline Respiratory/Chest: no respiratory distress, + rhonchi (coarse, throughout all lung vaz) Cardiovascular: no edema, normal peripheral pulses, + tachycardia, + irregularly irregular Abdomen/GI: normal bowel sounds, non tender, soft, no organomegaly Extremities/Musculoskelatal: normal inspection, no calf tenderness Neurologic/Psych: alert, normal mood/affect, oriented x 3, + pertinent finding (chronic left sided weakness, unchanged; no acute gross focal deficits noted) Skin: normal color, warm/dry Hospital Course PNEUMONIA Suspect aspiration pneumonia secondary to recent stroke. Blood cultures obtained. Received IV vancomycin and piperacillin / tazobactam. Afebrile. Adequate oxygenation on NC. Blood cultures negative so far. Nasal MRSA screen negative, so MRSA pneumonia unlikely. Stopped vancomycin. Chest congestion and wheezing improved with intravenous methylprednisolone. Transitioned from IV piperacillin / tazobactam to oral therapy with amoxicillin / sulbactam; will need 4 more days to complete 10 day course of therapy. Transitioned from IV steroids to PO prednisone. Should have f/u chest x-ray in 4-6 weeks to assure resolution of infiltrates. POSSIBLE SEPSIS Met criteria for sepsis at time of admission per 2001 definition and current CMS criteria - leukocytosis, tachycardia, tachypnea. Blood pressures as low as 88/49 day of admission. Received gentle fluid resuscitation in light of her cardiac status. Serum lactate 1.09. Pro-calcitonin 0.15. Blood cultures obtained. Received broad spectrum antibiotic coverage as noted above. PULMONARY ASPIRATION Recent stroke. PORTFOLIO SPECIALIST consulted. Video fluoroscopy demonstrated trace aspiration of thin barium liquid. Aspiration precautions. 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 Continue anticoagulation with apixaban. Continue PT, OT, PORTFOLIO SPECIALIST. ATRIAL FIBRILLATION Rate initially fast at times. Received digoxin PRN for rate control. Metoprolol dose adjusted. Continue apixaban. HYPERTENSION Continue metoprolol. Follow and titrate therapy. GASTRIC ULCER Continue PPI. Needs f/u EGD when medical status allows. CKD III Serum creatinine stable. Follow. ORAL THRUSH Improved with nystatin; change to PRN. DIARRHEA C diff negative. HEMORRHOIDAL BLEEDING One reported episode of hemorrhoidal bleeding. Need to continue anticoagulation due to high risk of recurrent cardioembolic events. Anusol HC suppositories PRN. VTE PROPHYLAXIS Continue apixaban. Ambulate as able. DISPOSITION Return to [facility] for inpatient rehab when medically stable. Long-term disposition to be determined. . Total time spent on discharge = 45 min. This includes examination of the patient, discharge planning, medication reconciliation, and communication with other providers. . Discharge Instructions Date of Service May 03, 2017. Admission Reason for Admission: pneumonia . Discharge Discharge Diagnosis / Problem: pneumonia, probably due to aspiration; recent right MCA stroke; chronic AF Discharge Goals Goal(s): Improve function, Increase independence, Improve disease control Activity Recommendations Activity Level: Assistance Required Therapies: Physical Therapy, Occupational Therapy, Speech Therapy . Additional Information Patient informed of condition: Yes Advance Directives: Yes DNR: Yes Level of Care: Acute Rehab Communicable Disease: No Prognosis: Improving Oxygen at (LPM): PRN for SOB or O2 sat < 90% Ramirez Catheter: No Instructions / Follow-Up Instructions / Follow-Up PRIMARY CARE Irene Graf PA-C [facility] Please make arrangements for follow-up when discharged from [facility]. Thank you for receiving this patient in transfer. Please call if you have any questions. Carlos May . Current Hospital Diet Patient's current hospital diet: AHA Diet (Heart Healthy) Discharge Diet Recommended Diet: AHA Diet (Heart Healthy) Pending Studies Studies pending at discharge: no Physician Orders On Transfer Special Precautions: ASPIRATION PRECAUTIONS PER PORTFOLIO SPECIALIST: Speech Therapy Discharge Instructions * Recommendin. Mechanical soft diet with thin liquids NO STRAWS, SINGLE SWALLOWS 2. Aspiration precautions 3. Safe swallow strategies (SMAL bites, SMALL sips, SLOW rate) 4. Consideration for supervision with meals to cue for safe swallow strategies specifically SINGLE swallows and slow rate FALL PRECAUTIONS SKIN PRECAUTIONS reposition at least q 2 hrs . Dressing Changes: skin tear left forearm- apply Optifoam; change daily + PRN . Vital Signs: routine . Additional Orders: Please check basic metabolic twice a week until stable, then as clinically indicated. . POLST Discussion: without POLST completion Medical Emergencies . Who to Call and When: Medical Emergencies: If at any time you feel your situation is an emergency, please call 911 immediately. . Non-Emergent Contact Non-Emergency issues call your: Primary Care Provider, Hospital Doctor . . "Provider Documentation" section prepared by Carlos May. . Core Measure Problem Core Measures: None . Additional Copies To Irene Graf PA-C
[2017-05-03] MEDS ORDERED: PRT40 PO (17:12)
== END 2017-05-03 19:12 | DRG 871 ==
LOC: EDBD 08:30 → C.EDB 08:35 → C.MED 11:13 → ENRESERV 12:12
PROVIDERS: ADMIT Family Medicine; ATTEND Hospitalist
DX: A41.9 Sepsis, unspecified organism (principal); J69.0 Pneumonitis due to inhalation of food and vomit; J96.01 Acute respiratory failure with hypoxia; I69.354 Hemiplegia and hemiparesis following cerebral infarction affecting left non-dominant side; B37.0 Candidal stomatitis; Z66 Do not resuscitate; I12.9 Hypertensive chronic kidney disease with stage 1 through stage 4 chronic kidney disease, or unspecified chronic kidney disease; I48.2 Chronic atrial fibrillation; E78.5 Hyperlipidemia, unspecified; M81.0 Age-related osteoporosis without current pathological fracture; Z96.643 Presence of artificial hip joint, bilateral; N18.3 Chronic kidney disease, stage 3 (moderate)